=== PATIENT | male | born 1950 | race Two or more races ===

== ENCOUNTER 2020-09-06 09:08 | Emergency (ER) | payer OTHER ==
[2020-09-06 09:28] VITALS: BMI 31.7
[2020-09-06 09:57] LABS: BASO % 0.3 % (0-2.0); EOS % 1.1 % (0-4.5); HEMATOCRIT 35.9 % (35.4-49); HEMOGLOBIN 12.3 GM/dL (11.7-16.9); LYMPH % 18.5 % (8-40); MCH 29.7 pg (25.7-33.7); MCHC 34.2 g/dl (32.0-35.9); MEAN PLT VOLUME 7.4 fl (7.5-11.1); MONO % 18.4 % (3.8-10.2); NEUT % 61.7 % (42.8-82.8); PLATELET COUNT 198 K/MM3 (134-434); RBC 4.13 M/mm3 (4.00-5.60); RDW 13.1 % (11.9-15.9); WHITE BLOOD COUNT 4.3 K/mm3 (4.0-10.0)
[2020-09-06 10:27] LABS: POTASSIUM 4.4 mmol/L (3.5-5.1)
[2020-09-06 10:29] LABS: ALBUMIN 3.6 g/dl (3.4-5.0); CALCIUM 8.8 mg/dL (8.5-10.1)
[2020-09-06 10:30] LABS: BLOOD UREA NITROGEN 24.9 mg/dL (7-18)
[2020-09-06 10:33] LABS: CREATININE 1.4 mg/dL (0.55-1.3)
[2020-09-06 10:34] LABS: BILIRUBIN,TOTAL 0.7 mg/dL (0.2-1); TOT PROT 7.9 g/dl (6.4-8.2)
[2020-09-06] MEDS ORDERED: SODIUM CHLORIDE 0.9% 500 ML INFUS.BAG IV ONE (10:36)
[2020-09-06 13:21] LABS: POTASSIUM 4.4 mmol/L (3.5-5.1)
[2020-09-06 13:24] LABS: CALCIUM 8.5 mg/dL (8.5-10.1)
[2020-09-06 13:25] LABS: BLOOD UREA NITROGEN 24.6 mg/dL (7-18)
[2020-09-06 13:28] LABS: CREATININE 1.3 mg/dL (0.55-1.3)
[2020-09-06 14:19] VITALS: BP 107/67; PULSE 88; TEMP 97.8
== END 2020-09-06 14:19 | disposition home or self-care (01) ==
LOC: JER 09:08
DX: E87.1 Hypo-osmolality and hyponatremia (principal); G62.9 Polyneuropathy, unspecified
CPT/HCPCS: 36415; 80048; 80053; 85025; 93970-TC; 99284-25

== ENCOUNTER 2020-10-24 17:55 | Inpatient (IN) | payer OTHER ==
[2020-10-24] MEDS ORDERED: IBUPROFEN 600 MG TABLET (FP) PO ONE ×2 (18:37→18:42)
[2020-10-24] MEDS ORDERED: ACETAMINOPHEN 500 MG TABLET (FP) ONE (18:47)
[2020-10-24] MEDS ORDERED: DEXTROSE 50%-WATER - 25 GM/50 ML VIAL IVPUSH ONE (19:50)
[2020-10-24] MEDS ORDERED: DEXTROSE 50%-WATER 25 GM/50 ML DISP.SYRIN ONE (19:57)
[2020-10-24] MEDS ORDERED: LIDOCAINE HCL 1%, 10 MG/ML (50 mL VIAL) INF ONE (20:08)
[2020-10-24] MEDS ORDERED: LIDOCAINE HCL 1%, 10 MG/ML (20ML VIAL) ONE (20:11)
[2020-10-25] MEDS ORDERED: DEXTROSE 50%-WATER 25 GM/50 ML DISP.SYRIN ONE (00:20)
[2020-10-25] MEDS ORDERED: DEXTROSE 50%-WATER - 25 GM/50 ML VIAL IVPUSH ONE (00:21)
[2020-10-25] MEDS ORDERED: ACETAMINOPHEN 500 MG TABLET (FP) PO ONE (00:56)
[2020-10-25] MEDS ORDERED: ACETAMINOPHEN 500 MG TABLET (FP) ONE (01:01)
[2020-10-25 01:42] LABS: BASO % 0.3 % (0-2.0); HEMATOCRIT 28.7 % (35.4-49); HEMOGLOBIN 9.8 GM/dL (11.7-16.9); LYMPH % 11.5 % (8-40); MCH 29.6 pg (25.7-33.7); MCHC 34.1 g/dl (32.0-35.9); MEAN CELL VOLUME 86.8 fl (80-96); MEAN PLT VOLUME 8.2 fl (7.5-11.1); MONO % 16.3 % (3.8-10.2); NEUT % 71.9 % (42.8-82.8); PLATELET COUNT 148 K/MM3 (134-434); RDW 14.9 % (11.9-15.9); WHITE BLOOD COUNT 3.4 K/mm3 (4.0-10.0)
[2020-10-25 02:12] LABS: URINE APPEARANCE Clear; URINE BILIRUBIN Negative (NEGATIVE); URINE COLOR Yellow; URINE GLUCOSE (UA) Negative (NEGATIVE); URINE KETONE Negative (NEGATIVE); URINE LEUK ESTERASE Negative (NEGATIVE); URINE NITRITE Negative (NEGATIVE); URINE PROTEIN 2+ (NEGATIVE); URINE UROBILINOGEN 0.2 mg/dL (0.2-1.0)
[2020-10-25 02:14] LABS: POTASSIUM 4.6 mmol/L (3.5-5.1)
[2020-10-25 02:17] LABS: CALCIUM 8.2 mg/dL (8.5-10.1)
[2020-10-25 02:18] LABS: ALBUMIN 3.3 g/dl (3.4-5.0); BLOOD UREA NITROGEN 26.5 mg/dL (7-18)
[2020-10-25 02:21] LABS: CREATININE 1.7 mg/dL (0.55-1.3)
[2020-10-25 02:22] LABS: BILIRUBIN,TOTAL 0.8 mg/dL (0.2-1); TOT PROT 6.9 g/dl (6.4-8.2)
[2020-10-25 02:41] LABS: EPI CELLS 35 /uL (0-25.1); HYALINE CASTS 0 /uL (0-3.1); URINE BACTERIA 68 /uL (0-1359); URINE RBC 15 /uL (0-23.9); URINE WBC 43 /uL (0-25.8)
[2020-10-25] MEDS ORDERED: ACETAMINOPHEN 325 MG TABLET (FP) PO PRN (05:31)
[2020-10-25 08:08] LABS: POTASSIUM 4.7 mmol/L (3.5-5.1)
[2020-10-25 08:15] LABS: BLOOD UREA NITROGEN 31.4 mg/dL (7-18); CALCIUM 8.4 mg/dL (8.5-10.1); MAGNESIUM 2.2 mg/dL (1.8-2.4)
[2020-10-25 08:17] LABS: ALBUMIN 3.5 g/dl (3.4-5.0); CREATININE 1.9 mg/dL (0.55-1.3)
[2020-10-25 08:19] LABS: BILIRUBIN,TOTAL 0.8 mg/dL (0.2-1); IRON SERUM 22 ug/dL (50-175); PHOSPHOROUS 3.6 mg/dL (2.5-4.9); TOTAL IRON BINDING CAPACITY 195 ug/dL (250-450)
[2020-10-25] MEDS: INSULIN SLIDING SCALE (NOVOLOG) 1 VIAL SQ SCH ×4 (09:02→23:11)
[2020-10-25] MEDS ORDERED: ASPIRIN COATED 81 MG TABLET.EC ONE (09:37)
[2020-10-25] MEDS ORDERED: ASCORBIC ACID 500 MG TABLET (FP) ONE ×2 (09:37→22:37)
[2020-10-25] MEDS ORDERED: HEPARIN NA (PORCINE) 5,000 UNITS/ML 1ML VIAL ONE (09:38)
[2020-10-25] MEDS ORDERED: ZINC SULFATE 220 MG CAPSULE (FP) ONE (09:38)
[2020-10-25] MEDS ORDERED: CHOLECALCIFEROL (VIT D3) 1,000 UNIT (25 MCG) TABLET ONE (09:38)
[2020-10-25] MEDS: ZINC SULFATE 220 MG CAPSULE (FP) PO SCH (10:13)
[2020-10-25] MEDS: ASPIRIN COATED 81 MG TABLET.EC PO SCH (10:13)
[2020-10-25] MEDS: HEPARIN NA (PORCINE) 5,000 UNITS/ML 1ML VIAL SQ SCH ×2 (10:13→19:40)
[2020-10-25] MEDS: CHOLECALCIFEROL (VIT D3) 1,000 UNIT (25 MCG) TABLET PO SCH (10:14)
[2020-10-25] MEDS: ASCORBIC ACID 500 MG TABLET (FP) PO SCH ×2 (10:14→22:47)
[2020-10-25] MEDS ORDERED: ACETAMINOPHEN 325 MG TABLET (FP) ONE (15:00)
[2020-10-25] MEDS ORDERED: SODIUM CHLORIDE 1,000 ML IV SCH (16:15)
[2020-10-25] MEDS ORDERED: DEXAMETHASONE SOD PHOSPHATE 10 MG/1 ML VIAL ONE (17:18)
[2020-10-25] MEDS ORDERED: PIPERACILLIN/TAZOB 2.25 GM 2.25 GM/50 ML BAG IVPB ONE ×2 (17:18→22:37)
[2020-10-25] MEDS ORDERED: VANCOMYCIN 1 GRAM (PRE-DOCKED) 1,000 MG/250 ML BAG IVPB ONE (17:19)
[2020-10-25] MEDS: DEXAMETHASONE SOD PHOSPHATE 10 MG/1 ML VIAL IVPUSH SCH (18:15)
[2020-10-25] MEDS: PIPERACILLIN/TAZOB 2.25 GM 2.25 GM in DEXTROSE 5%-WATER - 50 ML IVPB SCH ×2 (18:30→23:11)
[2020-10-25] MEDS: VANCOMYCIN 1 GM in D5W (PRE-DOCKED) 1,000 MG/250 ML IVPB SCH (18:52)
[2020-10-25] MEDS ORDERED: ATORVASTATIN CA 20 MG TABLET (FP) PO SCH (22:00)
[2020-10-25] MEDS ORDERED: FERROUS SO4 325 MG TABLET (FP) ONE (22:37)
[2020-10-25] MEDS ORDERED: ATORVASTATIN CA 20 MG TABLET (FP) ONE (22:37)
[2020-10-25] MEDS ORDERED: FAMOTIDINE 20 MG/50 ML IVPB 20 MG/50 ML MG IVPB ONE (22:38)
[2020-10-25] MEDS: FERROUS SO4 325 MG TABLET (FP) PO SCH (22:47)
[2020-10-25] MEDS: FAMOTIDINE 20 MG/50 ML IVPB 20 MG/50 ML MG IVPB SCH (22:47)
[2020-10-26] MEDS: HEPARIN NA (PORCINE) 5,000 UNITS/ML 1ML VIAL SQ SCH ×4 (03:19→22:45)
[2020-10-26] MEDS: PIPERACILLIN/TAZOB 2.25 GM 2.25 GM in DEXTROSE 5%-WATER - 50 ML IVPB SCH ×3 (03:19→15:15)
[2020-10-26] MEDS ORDERED: HEPARIN NA (PORCINE) 5,000 UNITS/ML 1ML VIAL ONE ×3 (03:21→09:31)
[2020-10-26] MEDS ORDERED: PIPERACILLIN/TAZOB 2.25 GM 2.25 GM/50 ML BAG IVPB ONE ×3 (03:21→15:15)
[2020-10-26 05:14] LABS: POTASSIUM 4.4 mmol/L (3.5-5.1)
[2020-10-26 05:17] LABS: ALBUMIN 3.2 g/dl (3.4-5.0)
[2020-10-26 05:19] LABS: CREATININE 1.7 mg/dL (0.55-1.3)
[2020-10-26 05:21] LABS: BILIRUBIN,TOTAL 0.8 mg/dL (0.2-1); TOT PROT 6.8 g/dl (6.4-8.2)
[2020-10-26 06:04] LABS: BASO % 0.3 % (0-2.0); HEMATOCRIT 28.1 % (35.4-49); HEMOGLOBIN 9.8 GM/dL (11.7-16.9); MCH 29.9 pg (25.7-33.7); MCHC 34.9 g/dl (32.0-35.9); MEAN CELL VOLUME 85.7 fl (80-96); MEAN PLT VOLUME 8.7 fl (7.5-11.1); MONO % 5.4 % (3.8-10.2); NEUT % 84.3 % (42.8-82.8); PLATELET COUNT 156 K/MM3 (134-434); RBC 3.27 M/mm3 (4.00-5.60); RDW 14.8 % (11.9-15.9); WHITE BLOOD COUNT 2.5 K/mm3 (4.0-10.0)
[2020-10-26] MEDS: INSULIN SLIDING SCALE (NOVOLOG) 1 VIAL SQ SCH ×4 (08:00→23:05)
[2020-10-26] MEDS ORDERED: ZINC SULFATE 220 MG CAPSULE (FP) ONE (09:30)
[2020-10-26] MEDS ORDERED: ASCORBIC ACID 500 MG TABLET (FP) ONE (09:30)
[2020-10-26] MEDS ORDERED: CHOLECALCIFEROL (VIT D3) 1,000 UNIT (25 MCG) TABLET ONE (09:30)
[2020-10-26] MEDS ORDERED: DEXAMETHASONE SOD PHOSPHATE 10 MG/1 ML VIAL ONE (09:30)
[2020-10-26] MEDS ORDERED: ASPIRIN 325 MG ENTERIC COATED TABLET (FP) ONE (09:30)
[2020-10-26] MEDS ORDERED: DOCUSATE SODIUM 100 MG CAPSULE (FP) PO ONE (09:31)
[2020-10-26] MEDS ORDERED: FERROUS SO4 325 MG TABLET (FP) ONE (09:31)
[2020-10-26] MEDS ORDERED: VANCOMYCIN 1 GRAM (PRE-DOCKED) 1,000 MG/250 ML BAG IVPB ONE (09:31)
[2020-10-26] MEDS ORDERED: FAMOTIDINE 20 MG/50 ML IVPB 20 MG/50 ML MG IVPB ONE (09:32)
[2020-10-26 09:43] LABS: BASO % 0.1 % (0-2.0); HEMATOCRIT 27.5 % (35.4-49); HEMOGLOBIN 9.5 GM/dL (11.7-16.9); LYMPH % 7.2 % (8-40); MCH 29.7 pg (25.7-33.7); MCHC 34.6 g/dl (32.0-35.9); MEAN PLT VOLUME 8.4 fl (7.5-11.1); MONO % 7.4 % (3.8-10.2); NEUT % 85.3 % (42.8-82.8); PLATELET COUNT 152 K/MM3 (134-434); RBC 3.19 M/mm3 (4.00-5.60); RDW 14.8 % (11.9-15.9); WHITE BLOOD COUNT 3.7 K/mm3 (4.0-10.0)
[2020-10-26] MEDS ORDERED: ASPIRIN COATED 81 MG TABLET.EC ONE (09:54)
[2020-10-26 10:02] LABS: POTASSIUM 4.5 mmol/L (3.5-5.1)
[2020-10-26] MEDS: CHOLECALCIFEROL (VIT D3) 1,000 UNIT (25 MCG) TABLET PO SCH (10:06)
[2020-10-26] MEDS: ASCORBIC ACID 500 MG TABLET (FP) PO SCH ×2 (10:06→22:46)
[2020-10-26] MEDS: VANCOMYCIN 1 GM in D5W (PRE-DOCKED) 1,000 MG/250 ML IVPB SCH (10:06)
[2020-10-26] MEDS: ZINC SULFATE 220 MG CAPSULE (FP) PO SCH (10:06)
[2020-10-26] MEDS: ASPIRIN COATED 81 MG TABLET.EC PO SCH (10:06)
[2020-10-26] MEDS: DEXAMETHASONE SOD PHOSPHATE 10 MG/1 ML VIAL IVPUSH SCH (10:06)
[2020-10-26] MEDS: DOCUSATE SODIUM 100 MG CAPSULE (FP) PO SCH (10:07)
[2020-10-26] MEDS: FERROUS SO4 325 MG TABLET (FP) PO SCH ×2 (10:07→22:43)
[2020-10-26 10:22] LABS: ALBUMIN 3.2 g/dl (3.4-5.0); CALCIUM 8.2 mg/dL (8.5-10.1)
[2020-10-26 10:23] LABS: BLOOD UREA NITROGEN 40.6 mg/dL (7-18)
[2020-10-26 10:24] LABS: MAGNESIUM 2.2 mg/dL (1.8-2.4)
[2020-10-26 10:25] LABS: CREATININE 1.6 mg/dL (0.55-1.3); PHOSPHOROUS 3.6 mg/dL (2.5-4.9)
[2020-10-26 10:26] LABS: TOT PROT 6.9 g/dl (6.4-8.2)
[2020-10-26 10:28] LABS: BILIRUBIN,TOTAL 1.3 mg/dL (0.2-1)
[2020-10-26] MEDS: FAMOTIDINE 20 MG/50 ML IVPB 20 MG/50 ML MG IVPB SCH ×2 (11:00→22:46)
[2020-10-26 14:23] LABS: EPI CELLS 6 /uL (0-25.1); HYALINE CASTS 2 /uL (0-3.1); URINE APPEARANCE CLOUDY; URINE BACTERIA 18 /uL (0-1359); URINE BILIRUBIN NEGATIVE (NEGATIVE); URINE COLOR YELLOW; URINE GLUCOSE (UA) NEGATIVE (NEGATIVE); URINE KETONE TRACE (NEGATIVE); URINE LEUK ESTERASE NEGATIVE (NEGATIVE); URINE NITRITE NEGATIVE (NEGATIVE); URINE PROTEIN 2+ (NEGATIVE); URINE RBC 6 /uL (0-23.9); URINE UROBILINOGEN 0.2 mg/dL (0.2-1.0); URINE WBC 13 /uL (0-25.8)
[2020-10-26] MEDS: ACETAMINOPHEN 325 MG TABLET (FP) PO PRN (22:47)
[2020-10-26] MEDS: ATORVASTATIN CA 20 MG TABLET (FP) PO SCH (22:50)
[2020-10-27] MEDS: HEPARIN NA (PORCINE) 5,000 UNITS/ML 1ML VIAL SQ SCH ×3 (06:09→21:44)
[2020-10-27] MEDS: INSULIN SLIDING SCALE (NOVOLOG) 1 VIAL SQ SCH ×4 (06:12→22:00)
[2020-10-27 08:35] LABS: BASO % 0.2 % (0-2.0); HEMATOCRIT 28.5 % (35.4-49); HEMOGLOBIN 9.9 GM/dL (11.7-16.9); LYMPH % 5.8 % (8-40); MCHC 34.8 g/dl (32.0-35.9); MEAN CELL VOLUME 86.3 fl (80-96); MEAN PLT VOLUME 8.2 fl (7.5-11.1); PLATELET COUNT 181 K/MM3 (134-434); RDW 14.5 % (11.9-15.9); WHITE BLOOD COUNT 7.9 K/mm3 (4.0-10.0)
[2020-10-27 10:09] LABS: ALBUMIN 3.4 g/dl (3.4-5.0); ALK PHOS 41 U/L (45-117); ANION GAP 12 MMOL/L (8-16); BILIRUBIN,TOTAL 0.8 mg/dL (0.2-1); BLOOD UREA NITROGEN 56.3 mg/dL (7-18); CALCIUM 7.9 mg/dL (8.5-10.1); CHLORIDE 103 mmol/L (98-107); CO2 19 mmol/L (21-32); CREATININE 2.2 mg/dL (0.55-1.3); GLUCOSE,RANDOM 189 mg/dL (74-106); LDH 344 U/L (87-246); MAGNESIUM 2.6 mg/dL (1.8-2.4); PHOSPHOROUS 3.4 mg/dL (2.5-4.9); POTASSIUM 4.3 mmol/L (3.5-5.1); SGOT/AST 70 U/L (15-37); SGPT/ALT 39 U/L (13-61); SODIUM 134 mmol/L (136-145); TOT PROT 7.2 g/dl (6.4-8.2)
[2020-10-27] MEDS: ASPIRIN COATED 81 MG TABLET.EC PO SCH (10:52)
[2020-10-27] MEDS: CHOLECALCIFEROL (VIT D3) 1,000 UNIT (25 MCG) TABLET PO SCH (10:52)
[2020-10-27] MEDS: DOCUSATE SODIUM 100 MG CAPSULE (FP) PO SCH (10:52)
[2020-10-27] MEDS: ZINC SULFATE 220 MG CAPSULE (FP) PO SCH (10:52)
[2020-10-27] MEDS: ASCORBIC ACID 500 MG TABLET (FP) PO SCH ×2 (10:53→21:45)
[2020-10-27] MEDS: DEXAMETHASONE SOD PHOSPHATE 10 MG/1 ML VIAL IVPUSH SCH (10:53)
[2020-10-27] MEDS: FERROUS SO4 325 MG TABLET (FP) PO SCH ×2 (10:54→21:43)
[2020-10-27] MEDS: FAMOTIDINE 20 MG/50 ML IVPB 20 MG/50 ML MG IVPB SCH ×2 (12:14→21:43)
[2020-10-27] MEDS: ACETAMINOPHEN 325 MG TABLET (FP) PO PRN (13:07)
[2020-10-27] MEDS: SODIUM CHLORIDE 1,000 ML IV SCH (18:21)
[2020-10-27] MEDS: ATORVASTATIN CA 20 MG TABLET (FP) PO SCH (21:45)
[2020-10-28] MEDS: HEPARIN NA (PORCINE) 5,000 UNITS/ML 1ML VIAL SQ SCH ×3 (05:56→22:28)
[2020-10-28] MEDS: INSULIN SLIDING SCALE (NOVOLOG) 1 VIAL SQ SCH ×4 (06:26→22:29)
[2020-10-28] MEDS: FAMOTIDINE 20 MG/50 ML IVPB 20 MG/50 ML MG IVPB SCH ×2 (09:19→22:28)
[2020-10-28] MEDS: ASCORBIC ACID 500 MG TABLET (FP) PO SCH ×2 (09:20→22:28)
[2020-10-28] MEDS: FERROUS SO4 325 MG TABLET (FP) PO SCH ×2 (09:20→22:28)
[2020-10-28] MEDS: CHOLECALCIFEROL (VIT D3) 1,000 UNIT (25 MCG) TABLET PO SCH (09:20)
[2020-10-28] MEDS: ZINC SULFATE 220 MG CAPSULE (FP) PO SCH (09:20)
[2020-10-28] MEDS: DOCUSATE SODIUM 100 MG CAPSULE (FP) PO SCH (09:20)
[2020-10-28] MEDS: ASPIRIN COATED 81 MG TABLET.EC PO SCH (09:20)
[2020-10-28] MEDS: ACETAMINOPHEN 325 MG TABLET (FP) PO PRN (09:27)
[2020-10-28 09:29] LABS: BASO % 0.1 % (0-2.0); HEMATOCRIT 25.1 % (35.4-49); HEMOGLOBIN 8.6 GM/dL (11.7-16.9); LYMPH % 7.1 % (8-40); MCH 29.6 pg (25.7-33.7); MCHC 34.1 g/dl (32.0-35.9); MEAN CELL VOLUME 86.9 fl (80-96); MEAN PLT VOLUME 8.1 fl (7.5-11.1); MONO % 13.9 % (3.8-10.2); NEUT % 78.9 % (42.8-82.8); PLATELET COUNT 190 K/MM3 (134-434); RBC 2.89 M/mm3 (4.00-5.60); RDW 14.9 % (11.9-15.9); WHITE BLOOD COUNT 7.7 K/mm3 (4.0-10.0)
[2020-10-28] MEDS: DEXAMETHASONE SOD PHOSPHATE 10 MG/1 ML VIAL IVPUSH SCH (09:42)
[2020-10-28 11:53] LABS: ALBUMIN 3.3 g/dl (3.4-5.0); BILIRUBIN,TOTAL 0.8 mg/dL (0.2-1); BLOOD UREA NITROGEN 47.3 mg/dL (7-18); CALCIUM 7.9 mg/dL (8.5-10.1); CREATININE 1.8 mg/dL (0.55-1.3); MAGNESIUM 2.4 mg/dL (1.8-2.4); PHOSPHOROUS 2.5 mg/dL (2.5-4.9); POTASSIUM 4.5 mmol/L (3.5-5.1); TOT PROT 6.9 g/dl (6.4-8.2)
[2020-10-28] MEDS: SODIUM CHLORIDE 1,000 ML IV SCH (14:51)
[2020-10-28] MEDS: metoPROLOL SUCCINATE 25 MG TAB.SR.24H (FP) PO SCH (14:52)
[2020-10-28 18:28] LABS: HEMATOCRIT 23.7 % (35.4-49); HEMOGLOBIN 8.1 GM/dL (11.7-16.9); MCH 30.1 pg (25.7-33.7); MCHC 34.2 g/dl (32.0-35.9); PLATELET COUNT 162 K/MM3 (134-434); RBC 2.69 M/mm3 (4.00-5.60); WHITE BLOOD COUNT 6.1 K/mm3 (4.0-10.0)
[2020-10-28] MEDS: ATORVASTATIN CA 20 MG TABLET (FP) PO SCH (22:28)
[2020-10-29] MEDS: HEPARIN NA (PORCINE) 5,000 UNITS/ML 1ML VIAL SQ SCH ×3 (06:08→21:05)
[2020-10-29] MEDS: INSULIN SLIDING SCALE (NOVOLOG) 1 VIAL SQ SCH ×4 (06:09→21:06)
[2020-10-29 09:01] LABS: BASO % 0.1 % (0-2.0); HEMATOCRIT 23.2 % (35.4-49); HEMOGLOBIN 7.9 GM/dL (11.7-16.9); LYMPH % 7.8 % (8-40); MCH 29.7 pg (25.7-33.7); MCHC 34.1 g/dl (32.0-35.9); MEAN CELL VOLUME 87.3 fl (80-96); MEAN PLT VOLUME 8.4 fl (7.5-11.1); MONO % 10.8 % (3.8-10.2); NEUT % 81.3 % (42.8-82.8); PLATELET COUNT 190 K/MM3 (134-434); RBC 2.66 M/mm3 (4.00-5.60); WHITE BLOOD COUNT 8.1 K/mm3 (4.0-10.0)
[2020-10-29] MEDS: metoPROLOL SUCCINATE 25 MG TAB.SR.24H (FP) PO SCH (09:50)
[2020-10-29] MEDS: CHOLECALCIFEROL (VIT D3) 1,000 UNIT (25 MCG) TABLET PO SCH (09:50)
[2020-10-29] MEDS: DOCUSATE SODIUM 100 MG CAPSULE (FP) PO SCH (09:50)
[2020-10-29] MEDS: ASPIRIN COATED 81 MG TABLET.EC PO SCH (09:50)
[2020-10-29] MEDS: ASCORBIC ACID 500 MG TABLET (FP) PO SCH ×2 (09:50→21:05)
[2020-10-29] MEDS: FERROUS SO4 325 MG TABLET (FP) PO SCH ×2 (09:50→21:05)
[2020-10-29] MEDS: ZINC SULFATE 220 MG CAPSULE (FP) PO SCH (09:50)
[2020-10-29] MEDS: DEXAMETHASONE SOD PHOSPHATE 10 MG/1 ML VIAL IVPUSH SCH (09:51)
[2020-10-29] MEDS: FAMOTIDINE 20 MG/50 ML IVPB 20 MG/50 ML MG IVPB SCH ×2 (09:51→21:05)
[2020-10-29 09:53] LABS: CHLORIDE 107 mmol/L (98-107); POTASSIUM 4.6 mmol/L (3.5-5.1); SODIUM 136 mmol/L (136-145)
[2020-10-29 09:56] LABS: ALBUMIN 3.3 g/dl (3.4-5.0); ANION GAP 10 MMOL/L (8-16); BLOOD UREA NITROGEN 43.5 mg/dL (7-18); CO2 19 mmol/L (21-32); GLUCOSE,RANDOM 166 mg/dL (74-106); MAGNESIUM 2.3 mg/dL (1.8-2.4)
[2020-10-29 09:59] LABS: CREATININE 1.6 mg/dL (0.55-1.3); PHOSPHOROUS 2.5 mg/dL (2.5-4.9); SGOT/AST 54 U/L (15-37); SGPT/ALT 50 U/L (13-61)
[2020-10-29 10:00] LABS: BILIRUBIN,TOTAL 1.1 mg/dL (0.2-1); LDH 374 U/L (87-246); TOT PROT 6.6 g/dl (6.4-8.2)
[2020-10-29 10:01] LABS: ALK PHOS 36 U/L (45-117)
[2020-10-29] MEDS: SODIUM CHLORIDE 1,000 ML IV SCH (13:53)
[2020-10-29] MEDS ORDERED: metoPROLOL SUCCINATE 25 MG TAB.SR.24H (FP) PO ONE (15:34)
[2020-10-29] MEDS: ATORVASTATIN CA 20 MG TABLET (FP) PO SCH (21:05)
[2020-10-30] MEDS: INSULIN SLIDING SCALE (NOVOLOG) 1 VIAL SQ SCH ×4 (06:09→22:10)
[2020-10-30] MEDS: HEPARIN NA (PORCINE) 5,000 UNITS/ML 1ML VIAL SQ SCH (06:10)
[2020-10-30 08:13] LABS: HEMATOCRIT 22.4 % (35.4-49); HEMOGLOBIN 7.6 GM/dL (11.7-16.9); LYMPH % 5.5 % (8-40); MCH 29.6 pg (25.7-33.7); MCHC 33.8 g/dl (32.0-35.9); MEAN CELL VOLUME 87.6 fl (80-96); MEAN PLT VOLUME 8.3 fl (7.5-11.1); MONO % 7.7 % (3.8-10.2); NEUT % 86.8 % (42.8-82.8); PLATELET COUNT 160 K/MM3 (134-434); RBC 2.56 M/mm3 (4.00-5.60); RDW 15.1 % (11.9-15.9); WHITE BLOOD COUNT 8.9 K/mm3 (4.0-10.0)
[2020-10-30 08:24] LABS: POTASSIUM 5.1 mmol/L (3.5-5.1)
[2020-10-30 08:29] LABS: CALCIUM 7.8 mg/dL (8.5-10.1)
[2020-10-30 08:30] LABS: BLOOD UREA NITROGEN 39.4 mg/dL (7-18); MAGNESIUM 2.3 mg/dL (1.8-2.4)
[2020-10-30 08:33] LABS: CREATININE 1.4 mg/dL (0.55-1.3); PHOSPHOROUS 2.5 mg/dL (2.5-4.9)
[2020-10-30 08:34] LABS: BILIRUBIN,TOTAL 1.6 mg/dL (0.2-1); TOT PROT 6.3 g/dl (6.4-8.2)
[2020-10-30] MEDS: ZINC SULFATE 220 MG CAPSULE (FP) PO SCH (09:33)
[2020-10-30] MEDS: ASCORBIC ACID 500 MG TABLET (FP) PO SCH ×2 (09:33→21:59)
[2020-10-30] MEDS: CHOLECALCIFEROL (VIT D3) 1,000 UNIT (25 MCG) TABLET PO SCH (09:33)
[2020-10-30] MEDS: DOCUSATE SODIUM 100 MG CAPSULE (FP) PO SCH (09:34)
[2020-10-30] MEDS: ASPIRIN COATED 81 MG TABLET.EC PO SCH (09:34)
[2020-10-30] MEDS: DEXAMETHASONE SOD PHOSPHATE 10 MG/1 ML VIAL IVPUSH SCH (09:35)
[2020-10-30] MEDS: FERROUS SO4 325 MG TABLET (FP) PO SCH ×2 (09:35→22:02)
[2020-10-30] MEDS ORDERED: FUROSEMIDE 40 MG/4 ML INJECTABLE VIAL IVPUSH ONE (09:36)
[2020-10-30] MEDS: FAMOTIDINE 20 MG/50 ML IVPB 20 MG/50 ML MG IVPB SCH ×2 (09:39→22:12)
[2020-10-30 10:19] LABS: ERYTHROCYTE SEDIMENTATION RATE 116 mm/hr (0-20)
[2020-10-30] MEDS: ATORVASTATIN CA 20 MG TABLET (FP) PO SCH (21:59)
[2020-10-31 01:18] LABS: BASO % 0.1 % (0-2.0); HEMATOCRIT 24.1 % (35.4-49); HEMOGLOBIN 8.3 GM/dL (11.7-16.9); MCH 29.2 pg (25.7-33.7); MCHC 34.3 g/dl (32.0-35.9); MEAN CELL VOLUME 85.1 fl (80-96); MEAN PLT VOLUME 8.5 fl (7.5-11.1); MONO % 6.4 % (3.8-10.2); NEUT % 89.5 % (42.8-82.8); PLATELET COUNT 151 K/MM3 (134-434); RBC 2.83 M/mm3 (4.00-5.60); RDW 14.6 % (11.9-15.9)
[2020-10-31] MEDS: INSULIN SLIDING SCALE (NOVOLOG) 1 VIAL SQ SCH ×4 (06:09→21:55)
[2020-10-31 08:23] LABS: HEMATOCRIT 25.5 % (35.4-49); HEMOGLOBIN 8.8 GM/dL (11.7-16.9); LYMPH % 3.8 % (8-40); MCH 29.6 pg (25.7-33.7); MCHC 34.5 g/dl (32.0-35.9); MEAN CELL VOLUME 85.8 fl (80-96); MEAN PLT VOLUME 8.9 fl (7.5-11.1); MONO % 7.5 % (3.8-10.2); NEUT % 88.7 % (42.8-82.8); PLATELET COUNT 155 K/MM3 (134-434); RBC 2.97 M/mm3 (4.00-5.60); RDW 15.2 % (11.9-15.9); WHITE BLOOD COUNT 8.9 K/mm3 (4.0-10.0)
[2020-10-31 08:46] LABS: POTASSIUM 4.7 mmol/L (3.5-5.1)
[2020-10-31] MEDS: FERROUS SO4 325 MG TABLET (FP) PO SCH ×2 (09:03→21:53)
[2020-10-31] MEDS: FAMOTIDINE 20 MG/50 ML IVPB 20 MG/50 ML MG IVPB SCH ×2 (09:03→21:55)
[2020-10-31] MEDS: ASPIRIN COATED 81 MG TABLET.EC PO SCH (09:04)
[2020-10-31] MEDS: CHOLECALCIFEROL (VIT D3) 1,000 UNIT (25 MCG) TABLET PO SCH (09:04)
[2020-10-31] MEDS: DEXAMETHASONE SOD PHOSPHATE 10 MG/1 ML VIAL IVPUSH SCH (09:04)
[2020-10-31] MEDS: ASCORBIC ACID 500 MG TABLET (FP) PO SCH ×2 (09:04→21:54)
[2020-10-31] MEDS: DOCUSATE SODIUM 100 MG CAPSULE (FP) PO SCH (09:05)
[2020-10-31] MEDS: ZINC SULFATE 220 MG CAPSULE (FP) PO SCH (09:05)
[2020-10-31 09:24] LABS: ALBUMIN 2.9 g/dl (3.4-5.0); BLOOD UREA NITROGEN 47.7 mg/dL (7-18); CALCIUM 7.8 mg/dL (8.5-10.1); MAGNESIUM 2.6 mg/dL (1.8-2.4)
[2020-10-31 09:27] LABS: CREATININE 1.4 mg/dL (0.55-1.3); PHOSPHOROUS 3.4 mg/dL (2.5-4.9)
[2020-10-31 09:29] LABS: BILIRUBIN,TOTAL 1.5 mg/dL (0.2-1); TOT PROT 6.3 g/dl (6.4-8.2)
[2020-10-31] MEDS ORDERED: FUROSEMIDE 40 MG TABLET (FP) PO ONE ×2 (16:02→18:15)
[2020-10-31] MEDS: ATORVASTATIN CA 20 MG TABLET (FP) PO SCH (21:53)
[2020-10-31] MEDS: ACETAMINOPHEN 325 MG TABLET (FP) PO PRN (21:54)
[2020-11-01] MEDS: INSULIN SLIDING SCALE (NOVOLOG) 1 VIAL SQ SCH ×4 (06:14→21:35)
[2020-11-01] MEDS: ASCORBIC ACID 500 MG TABLET (FP) PO SCH ×2 (09:04→21:35)
[2020-11-01] MEDS: ASPIRIN COATED 81 MG TABLET.EC PO SCH (09:04)
[2020-11-01] MEDS: DEXAMETHASONE SOD PHOSPHATE 10 MG/1 ML VIAL IVPUSH SCH (09:05)
[2020-11-01] MEDS: FERROUS SO4 325 MG TABLET (FP) PO SCH ×2 (09:05→21:35)
[2020-11-01] MEDS: ZINC SULFATE 220 MG CAPSULE (FP) PO SCH (09:05)
[2020-11-01] MEDS: FAMOTIDINE 20 MG/50 ML IVPB 20 MG/50 ML MG IVPB SCH ×2 (09:05→21:34)
[2020-11-01] MEDS: DOCUSATE SODIUM 100 MG CAPSULE (FP) PO SCH (09:05)
[2020-11-01] MEDS: CHOLECALCIFEROL (VIT D3) 1,000 UNIT (25 MCG) TABLET PO SCH (09:05)
[2020-11-01 09:16] LABS: BASO % 0.1 % (0-2.0); HEMOGLOBIN 9.2 GM/dL (11.7-16.9); LYMPH % 4.4 % (8-40); MCH 29.3 pg (25.7-33.7); MCHC 34.1 g/dl (32.0-35.9); MEAN CELL VOLUME 85.7 fl (80-96); MEAN PLT VOLUME 8.7 fl (7.5-11.1); MONO % 9.9 % (3.8-10.2); NEUT % 85.6 % (42.8-82.8); PLATELET COUNT 172 K/MM3 (134-434); RBC 3.16 M/mm3 (4.00-5.60); WHITE BLOOD COUNT 7.2 K/mm3 (4.0-10.0)
[2020-11-01 09:42] LABS: POTASSIUM 4.3 mmol/L (3.5-5.1)
[2020-11-01 09:54] LABS: ALBUMIN 2.8 g/dl (3.4-5.0); BILIRUBIN,TOTAL 1.4 mg/dL (0.2-1); TOT PROT 6.3 g/dl (6.4-8.2)
[2020-11-01 09:56] LABS: CALCIUM 8.1 mg/dL (8.5-10.1)
[2020-11-01 09:57] LABS: BLOOD UREA NITROGEN 44.3 mg/dL (7-18); CREATININE 1.4 mg/dL (0.55-1.3); MAGNESIUM 2.4 mg/dL (1.8-2.4)
[2020-11-01] MEDS: APIXABAN 2.5 MG TABLET PO SCH (21:35)
[2020-11-01] MEDS: ATORVASTATIN CA 20 MG TABLET (FP) PO SCH (21:35)
[2020-11-02] MEDS: INSULIN SLIDING SCALE (NOVOLOG) 1 VIAL SQ SCH ×3 (06:29→17:33)
[2020-11-02 08:18] LABS: ARTERIAL BLD GAS O2 SATURATION 92.7 mmHg (95-98); ARTERIAL BLOOD GAS BASE EXCESS 0.3 mmol/L (-2-2); ARTERIAL BLOOD GAS PO2 62.6 mmHg (80-100); ARTERIAL BLOOD GAS pH 7.431 (7.350-7.450)
[2020-11-02 08:22] LABS: VENT MODE BIP; VENT RATE 30
[2020-11-02] MEDS ORDERED: MORPHINE SULFATE 2 MG/ML VIAL IVPUSH ONE (08:23)
[2020-11-02] MEDS: ACETAMINOPHEN 1000 MG/100 ML VIAL (NON FORMULARY) IVPB PRN (08:31)
[2020-11-02 08:32] LABS: BASO % 0.2 % (0-2.0); HEMATOCRIT 30.1 % (35.4-49); HEMOGLOBIN 10.3 GM/dL (11.7-16.9); MCH 29.2 pg (25.7-33.7); MCHC 34.1 g/dl (32.0-35.9); MEAN CELL VOLUME 85.6 fl (80-96); MEAN PLT VOLUME 8.9 fl (7.5-11.1); MONO % 7.4 % (3.8-10.2); NEUT % 87.4 % (42.8-82.8); PLATELET COUNT 208 K/MM3 (134-434); RBC 3.52 M/mm3 (4.00-5.60); WHITE BLOOD COUNT 12.4 K/mm3 (4.0-10.0)
[2020-11-02 08:34] LABS: POTASSIUM 4.5 mmol/L (3.5-5.1)
[2020-11-02 08:39] LABS: ALBUMIN 2.9 g/dl (3.4-5.0)
[2020-11-02 08:40] LABS: CALCIUM 8.5 mg/dL (8.5-10.1)
[2020-11-02 08:42] LABS: CREATININE 1.4 mg/dL (0.55-1.3)
[2020-11-02 08:44] LABS: BILIRUBIN,TOTAL 2.1 mg/dL (0.2-1); TOT PROT 6.7 g/dl (6.4-8.2)
[2020-11-02] MEDS ORDERED: SODIUM CHLORIDE 500 ML IV STA (09:07)
[2020-11-02] MEDS: APIXABAN 2.5 MG TABLET PO SCH ×2 (09:19→22:25)
[2020-11-02] MEDS: DEXAMETHASONE SOD PHOSPHATE 10 MG/1 ML VIAL IVPUSH SCH (09:19)
[2020-11-02] MEDS: ASPIRIN COATED 81 MG TABLET.EC PO SCH (09:19)
[2020-11-02] MEDS ORDERED: VANCOMYCIN 1 GM in D5W (PRE-DOCKED) 1,000 MG/250 ML IVPB SCH (11:00)
[2020-11-02] MEDS ORDERED: REMDESIVIR 200 MG in SODIUM CHLORIDE 210 ML IVPB ONE (11:00)
[2020-11-02] MEDS ORDERED: DEXTROSE 5%-WATER - 50 ML IVPB ONE ×2 (11:15→17:28)
[2020-11-02] MEDS ORDERED: PIPERACILLIN/TAZOBACTAM 3.375 GM VIAL IVPB ONE ×3 (11:15→17:28)
[2020-11-02] MEDS: ASCORBIC ACID 500 MG TABLET (FP) PO SCH ×2 (11:25→22:25)
[2020-11-02] MEDS: FAMOTIDINE 20 MG/50 ML IVPB 20 MG/50 ML MG IVPB SCH ×2 (11:25→22:25)
[2020-11-02] MEDS: FERROUS SO4 325 MG TABLET (FP) PO SCH ×2 (11:26→22:25)
[2020-11-02] MEDS: CHOLECALCIFEROL (VIT D3) 1,000 UNIT (25 MCG) TABLET PO SCH (11:26)
[2020-11-02] MEDS: DOCUSATE SODIUM 100 MG CAPSULE (FP) PO SCH (11:26)
[2020-11-02] MEDS: ZINC SULFATE 220 MG CAPSULE (FP) PO SCH (11:26)
[2020-11-02] MEDS ORDERED: PT OWN MED DRAWER 7, Y5N ONE (11:52)
[2020-11-02] MEDS: PIPERACILLIN/TAZOB 3.375 GM 3.375 GM in DEXTROSE 5%-WATER - 50 ML IVPB SCH ×2 (12:58→17:33)
[2020-11-02 14:02] LABS: EPI CELLS 13 /uL (0-25.1); HYALINE CASTS 4 /uL (0-3.1); PH,URINE 5.5 (5.0-8.0); URINE APPEARANCE CLEAR; URINE BACTERIA 120 /uL (0-1359); URINE BILIRUBIN NEGATIVE (NEGATIVE); URINE COLOR YELLOW; URINE GLUCOSE (UA) 1+ (NEGATIVE); URINE KETONE NEGATIVE (NEGATIVE); URINE LEUK ESTERASE NEGATIVE (NEGATIVE); URINE NITRITE NEGATIVE (NEGATIVE); URINE PROTEIN 3+ (NEGATIVE); URINE RBC 10 /uL (0-23.9); URINE WBC 6 /uL (0-25.8)
[2020-11-02] MEDS ORDERED: PIPERACILLIN/TAZOB 3.375 GM 3.375 GM in DEXTROSE 5%-WATER - 50 ML IVPB SCH (18:00)
[2020-11-02] MEDS: MORPHINE SULFATE 2 MG/ML VIAL IVPUSH PRN (22:14)
[2020-11-02] MEDS: ATORVASTATIN CA 20 MG TABLET (FP) PO SCH (22:25)
[2020-11-03] MEDS: INSULIN SLIDING SCALE (NOVOLOG) 1 VIAL SQ SCH ×5 (00:10→22:12)
[2020-11-03] MEDS: ACETAMINOPHEN 1000 MG/100 ML VIAL (NON FORMULARY) IVPB PRN (01:50)
[2020-11-03] MEDS ORDERED: PIPERACILLIN/TAZOBACTAM 3.375 GM VIAL IVPB ONE ×2 (02:40→17:24)
[2020-11-03] MEDS ORDERED: DEXTROSE 5%-WATER - 50 ML IVPB ONE ×2 (02:41→17:24)
[2020-11-03] MEDS: PIPERACILLIN/TAZOB 3.375 GM 3.375 GM in DEXTROSE 5%-WATER - 50 ML IVPB SCH ×2 (02:55→17:33)
[2020-11-03] MEDS: MORPHINE SULFATE 2 MG/ML VIAL IVPUSH PRN ×4 (06:22→21:36)
[2020-11-03] MEDS: CHOLECALCIFEROL (VIT D3) 1,000 UNIT (25 MCG) TABLET PO SCH (09:33)
[2020-11-03] MEDS: ASCORBIC ACID 500 MG TABLET (FP) PO SCH ×2 (09:33→21:35)
[2020-11-03] MEDS: DEXAMETHASONE SOD PHOSPHATE 10 MG/1 ML VIAL IVPUSH SCH (09:33)
[2020-11-03] MEDS: ASPIRIN COATED 81 MG TABLET.EC PO SCH (09:33)
[2020-11-03] MEDS: FERROUS SO4 325 MG TABLET (FP) PO SCH ×2 (09:33→21:34)
[2020-11-03] MEDS: APIXABAN 2.5 MG TABLET PO SCH (09:33)
[2020-11-03] MEDS: DOCUSATE SODIUM 100 MG CAPSULE (FP) PO SCH (09:33)
[2020-11-03] MEDS: FAMOTIDINE 20 MG/50 ML IVPB 20 MG/50 ML MG IVPB SCH ×2 (09:34→21:35)
[2020-11-03] MEDS: ZINC SULFATE 220 MG CAPSULE (FP) PO SCH (09:34)
[2020-11-03] MEDS ORDERED: FUROSEMIDE 40 MG/4 ML INJECTABLE VIAL IVPUSH ONE (10:04)
[2020-11-03] MEDS ORDERED: MORPHINE SULFATE 2 MG/ML VIAL IVPUSH ONE (10:07)
[2020-11-03 10:14] LABS: EOS % 0.1 % (0-4.5); HEMATOCRIT 31.2 % (35.4-49); HEMOGLOBIN 10.6 GM/dL (11.7-16.9); LYMPH % 4.6 % (8-40); MCH 29.4 pg (25.7-33.7); MCHC 33.8 g/dl (32.0-35.9); MEAN CELL VOLUME 86.9 fl (80-96); MEAN PLT VOLUME 9.2 fl (7.5-11.1); MONO % 4.3 % (3.8-10.2); PLATELET COUNT 168 K/MM3 (134-434); RBC 3.59 M/mm3 (4.00-5.60); RDW 15.3 % (11.9-15.9); WHITE BLOOD COUNT 8.1 K/mm3 (4.0-10.0)
[2020-11-03 10:34] LABS: POTASSIUM 4.8 mmol/L (3.5-5.1)
[2020-11-03 10:36] LABS: BLOOD UREA NITROGEN 46.6 mg/dL (7-18); CALCIUM 8.2 mg/dL (8.5-10.1)
[2020-11-03 10:37] LABS: MAGNESIUM 2.4 mg/dL (1.8-2.4)
[2020-11-03 10:40] LABS: CREATININE 1.5 mg/dL (0.55-1.3); PHOSPHOROUS 2.9 mg/dL (2.5-4.9)
[2020-11-03] MEDS ORDERED: ACETAMINOPHEN 1000 MG/100 ML VIAL (NON FORMULARY) IVPB PRN (11:20)
[2020-11-03] MEDS: REMDESIVIR 100 MG in SODIUM CHLORIDE 230 ML IVPB SCH (11:26)
[2020-11-03] MEDS ORDERED: DEXAMETHASONE SOD PHOSPHATE 4 MG/1 ML VIAL IVPUSH ONE (14:33)
[2020-11-03] MEDS ORDERED: VANCOMYCIN 1 GRAM (PRE-DOCKED) 1,000 MG/250 ML BAG IVPB ONE (15:00)
[2020-11-03] MEDS: AMINO ACIDS 4.25%/D5W 1,000 ML IV SCH ×2 (15:39→23:35)
[2020-11-03] MEDS: ATORVASTATIN CA 20 MG TABLET (FP) PO SCH (21:34)
[2020-11-03] MEDS: ENOXAPARIN NA (PORCINE) 80 MG/0.8 ML DISP.SYRIN SQ SCH (21:34)
[2020-11-04] MEDS ORDERED: PIPERACILLIN/TAZOBACTAM 3.375 GM VIAL IVPB ONE ×3 (02:31→16:53)
[2020-11-04] MEDS ORDERED: DEXTROSE 5%-WATER - 50 ML IVPB ONE ×3 (02:31→16:53)
[2020-11-04] MEDS: PIPERACILLIN/TAZOB 3.375 GM 3.375 GM in DEXTROSE 5%-WATER - 50 ML IVPB SCH ×3 (02:38→17:51)
[2020-11-04] MEDS: INSULIN SLIDING SCALE (NOVOLOG) 1 VIAL SQ SCH ×4 (07:10→22:39)
[2020-11-04 07:39] LABS: BASO % 0.3 % (0-2.0); HEMATOCRIT 27.3 % (35.4-49); HEMOGLOBIN 9.1 GM/dL (11.7-16.9); LYMPH % 2.6 % (8-40); MCH 29.7 pg (25.7-33.7); MCHC 33.3 g/dl (32.0-35.9); MEAN CELL VOLUME 89.4 fl (80-96); MEAN PLT VOLUME 9.9 fl (7.5-11.1); MONO % 3.7 % (3.8-10.2); NEUT % 93.4 % (42.8-82.8); PLATELET COUNT 153 K/MM3 (134-434); RBC 3.06 M/mm3 (4.00-5.60); RDW 15.9 % (11.9-15.9); WHITE BLOOD COUNT 7.1 K/mm3 (4.0-10.0)
[2020-11-04 07:43] LABS: POTASSIUM 5.1 mmol/L (3.5-5.1)
[2020-11-04 07:59] LABS: CALCIUM 8.3 mg/dL (8.5-10.1)
[2020-11-04 08:00] LABS: ALBUMIN 2.3 g/dl (3.4-5.0); BLOOD UREA NITROGEN 55.6 mg/dL (7-18); MAGNESIUM 2.6 mg/dL (1.8-2.4)
[2020-11-04 08:02] LABS: CREATININE 1.3 mg/dL (0.55-1.3); PHOSPHOROUS 3.8 mg/dL (2.5-4.9)
[2020-11-04 08:04] LABS: BILIRUBIN,TOTAL 1.2 mg/dL (0.2-1); TOT PROT 6.1 g/dl (6.4-8.2)
[2020-11-04] MEDS ORDERED: PT OWN MED DRAWER 7, Y5N ONE ×2 (09:34→12:28)
[2020-11-04] MEDS: FAMOTIDINE 20 MG/50 ML IVPB 20 MG/50 ML MG IVPB SCH ×2 (09:44→22:40)
[2020-11-04] MEDS: ENOXAPARIN NA (PORCINE) 80 MG/0.8 ML DISP.SYRIN SQ SCH ×2 (09:44→22:38)
[2020-11-04] MEDS: DEXAMETHASONE SOD PHOSPHATE 10 MG/1 ML VIAL IVPUSH SCH (09:46)
[2020-11-04] MEDS: MORPHINE SULFATE 2 MG/ML VIAL IVPUSH PRN (09:48)
[2020-11-04] MEDS: CHOLECALCIFEROL (VIT D3) 1,000 UNIT (25 MCG) TABLET PO SCH (09:50)
[2020-11-04] MEDS: ZINC SULFATE 220 MG CAPSULE (FP) PO SCH (09:50)
[2020-11-04] MEDS: ASCORBIC ACID 500 MG TABLET (FP) PO SCH ×2 (09:51→22:40)
[2020-11-04] MEDS: DOCUSATE SODIUM 100 MG CAPSULE (FP) PO SCH (09:51)
[2020-11-04] MEDS: ASPIRIN COATED 81 MG TABLET.EC PO SCH (09:51)
[2020-11-04] MEDS: AMINO ACIDS 4.25%/D5W 1,000 ML IV SCH ×2 (09:51→22:41)
[2020-11-04] MEDS: FERROUS SO4 325 MG TABLET (FP) PO SCH ×2 (09:51→22:38)
[2020-11-04] MEDS ORDERED: TOCILIZUMAB (ACTEMRA) 200 MG/10 ML VIAL IVPB ONE (11:00)
[2020-11-04] MEDS: REMDESIVIR 100 MG in SODIUM CHLORIDE 230 ML IVPB SCH (11:42)
[2020-11-04] MEDS ORDERED: TOCILIZUMAB 600 MG in SODIUM CHLORIDE 70 ML IVPB ONE (12:00)
[2020-11-04 15:36] LABS: ANISOCYTOSIS 0; MACROCYTOSIS 0; OVALOCYTE 1+; PLATELET ESTIMATE DECREASED
[2020-11-04] MEDS: ATORVASTATIN CA 20 MG TABLET (FP) PO SCH (22:38)
[2020-11-05] MEDS ORDERED: DEXTROSE 5%-WATER - 50 ML IVPB ONE ×3 (02:08→17:49)
[2020-11-05] MEDS ORDERED: PIPERACILLIN/TAZOBACTAM 3.375 GM VIAL IVPB ONE ×3 (02:08→17:48)
[2020-11-05] MEDS: PIPERACILLIN/TAZOB 3.375 GM 3.375 GM in DEXTROSE 5%-WATER - 50 ML IVPB SCH ×3 (02:26→17:54)
[2020-11-05] MEDS: INSULIN SLIDING SCALE (NOVOLOG) 1 VIAL SQ SCH ×4 (06:25→22:45)
[2020-11-05 07:19] LABS: BASO % 0.2 % (0-2.0); HEMATOCRIT 31.1 % (35.4-49); HEMOGLOBIN 10.6 GM/dL (11.7-16.9); LYMPH % 2.1 % (8-40); MCH 29.7 pg (25.7-33.7); MCHC 34.2 g/dl (32.0-35.9); MEAN CELL VOLUME 86.8 fl (80-96); MEAN PLT VOLUME 9.7 fl (7.5-11.1); MONO % 3.4 % (3.8-10.2); NEUT % 94.3 % (42.8-82.8); PLATELET COUNT 163 K/MM3 (134-434); RBC 3.58 M/mm3 (4.00-5.60); RDW 15.4 % (11.9-15.9); WHITE BLOOD COUNT 10.3 K/mm3 (4.0-10.0)
[2020-11-05 07:44] LABS: ALBUMIN 2.3 g/dl (3.4-5.0); CALCIUM 7.8 mg/dL (8.5-10.1)
[2020-11-05 07:45] LABS: BLOOD UREA NITROGEN 64.5 mg/dL (7-18); MAGNESIUM 2.3 mg/dL (1.8-2.4)
[2020-11-05 07:47] LABS: CREATININE 1.2 mg/dL (0.55-1.3)
[2020-11-05 07:48] LABS: PHOSPHOROUS 3.2 mg/dL (2.5-4.9)
[2020-11-05 09:37] LABS: ANISOCYTOSIS 0; MACROCYTOSIS 0; OVALOCYTE 1+; PLATELET ESTIMATE NORMAL
[2020-11-05] MEDS: DEXAMETHASONE SOD PHOSPHATE 10 MG/1 ML VIAL IVPUSH SCH (10:01)
[2020-11-05] MEDS: ASPIRIN COATED 81 MG TABLET.EC PO SCH (10:01)
[2020-11-05] MEDS: DOCUSATE SODIUM 100 MG CAPSULE (FP) PO SCH (10:01)
[2020-11-05] MEDS: ZINC SULFATE 220 MG CAPSULE (FP) PO SCH (10:02)
[2020-11-05] MEDS: FERROUS SO4 325 MG TABLET (FP) PO SCH ×2 (10:02→21:45)
[2020-11-05] MEDS: ENOXAPARIN NA (PORCINE) 80 MG/0.8 ML DISP.SYRIN SQ SCH ×2 (10:02→21:45)
[2020-11-05] MEDS: FAMOTIDINE 20 MG/50 ML IVPB 20 MG/50 ML MG IVPB SCH ×2 (10:02→21:46)
[2020-11-05] MEDS: ASCORBIC ACID 500 MG TABLET (FP) PO SCH ×2 (10:02→21:46)
[2020-11-05] MEDS: CHOLECALCIFEROL (VIT D3) 1,000 UNIT (25 MCG) TABLET PO SCH (10:03)
[2020-11-05] MEDS ORDERED: PT OWN MED DRAWER 7, Y5N ONE (10:55)
[2020-11-05] MEDS: REMDESIVIR 100 MG in SODIUM CHLORIDE 230 ML IVPB SCH (11:01)
[2020-11-05] MEDS: AMINO ACIDS 4.25%/D5W 1,000 ML IV SCH (11:01)
[2020-11-05] MEDS: MORPHINE SULFATE 2 MG/ML VIAL IVPUSH PRN ×2 (16:55→21:47)
[2020-11-05] MEDS: ATORVASTATIN CA 20 MG TABLET (FP) PO SCH (21:46)
[2020-11-06] MEDS: AMINO ACIDS 4.25%/D5W 1,000 ML IV SCH ×2 (00:15→10:23)
[2020-11-06] MEDS ORDERED: PIPERACILLIN/TAZOBACTAM 3.375 GM VIAL IVPB ONE ×3 (00:54→15:13)
[2020-11-06] MEDS ORDERED: DEXTROSE 5%-WATER - 50 ML IVPB ONE ×3 (00:55→15:13)
[2020-11-06] MEDS: PIPERACILLIN/TAZOB 3.375 GM 3.375 GM in DEXTROSE 5%-WATER - 50 ML IVPB SCH ×3 (01:46→17:15)
[2020-11-06] MEDS: MORPHINE SULFATE 2 MG/ML VIAL IVPUSH PRN ×3 (06:54→15:05)
[2020-11-06 07:32] LABS: BASO % 0.1 % (0-2.0); HEMATOCRIT 33.3 % (35.4-49); HEMOGLOBIN 11.2 GM/dL (11.7-16.9); LYMPH % 1.7 % (8-40); MCH 28.7 pg (25.7-33.7); MCHC 33.5 g/dl (32.0-35.9); MEAN CELL VOLUME 85.6 fl (80-96); MEAN PLT VOLUME 9.7 fl (7.5-11.1); NEUT % 95.2 % (42.8-82.8); PLATELET COUNT 182 K/MM3 (134-434); RBC 3.89 M/mm3 (4.00-5.60); RDW 15.7 % (11.9-15.9)
[2020-11-06 07:54] LABS: ALBUMIN 2.6 g/dl (3.4-5.0)
[2020-11-06 07:55] LABS: BLOOD UREA NITROGEN 65.1 mg/dL (7-18); CALCIUM 8.2 mg/dL (8.5-10.1)
[2020-11-06 07:56] LABS: MAGNESIUM 2.3 mg/dL (1.8-2.4)
[2020-11-06] MEDS: INSULIN SLIDING SCALE (NOVOLOG) 1 VIAL SQ SCH ×4 (07:57→21:46)
[2020-11-06 07:58] LABS: CREATININE 1.1 mg/dL (0.55-1.3)
[2020-11-06 08:00] LABS: BILIRUBIN,TOTAL 1.3 mg/dL (0.2-1); TOT PROT 6.4 g/dl (6.4-8.2)
[2020-11-06] MEDS ORDERED: RAPID SEQUENCE INTUBATION KIT NR ONE (08:44)
[2020-11-06] MEDS ORDERED: PT OWN MED DRAWER 7, Y5N ONE ×2 (09:33→18:52)
[2020-11-06] MEDS: DEXAMETHASONE SOD PHOSPHATE 10 MG/1 ML VIAL IVPUSH SCH (09:37)
[2020-11-06] MEDS: FAMOTIDINE 20 MG/50 ML IVPB 20 MG/50 ML MG IVPB SCH ×2 (09:37→21:37)
[2020-11-06] MEDS: ENOXAPARIN NA (PORCINE) 80 MG/0.8 ML DISP.SYRIN SQ SCH ×2 (09:37→21:36)
[2020-11-06] MEDS: REMDESIVIR 100 MG in SODIUM CHLORIDE 230 ML IVPB SCH (10:31)
[2020-11-06 11:20] LABS: ANISOCYTOSIS 1+; MACROCYTOSIS 0; PLATELET ESTIMATE DECREASED
[2020-11-06] MEDS ORDERED: METOPROLOL TARTRATE 5 MG/5 ML VIAL IVPUSH PRN (14:28)
[2020-11-06] MEDS ORDERED: LORazepam 2 MG/ML SDV VIAL IVPUSH ONE (15:12)
[2020-11-06] MEDS ORDERED: MIDAZOLAM HCL 5 MG/1 ML Single Dose Vial ONE (15:21)
[2020-11-06] MEDS ORDERED: PROPOFOL 1,000,000 MCG/100 ML VIAL ONE (15:21)
[2020-11-06] MEDS ORDERED: ROCURONIUM BROMIDE 50 MG/5 ML VIAL IVPUSH ONE (15:21)
[2020-11-06] MEDS ORDERED: MIDAZOLAM HCL 2 MG/2 ML SINGLE DOSE VIAL IVPUSH ONE (15:27)
[2020-11-06] MEDS ORDERED: PROPOFOL 200 MG/20 ML VIAL IVPUSH ONE (15:29)
[2020-11-06 15:45] LABS: ARTERIAL BLD GAS O2 SATURATION 91.2 mmHg (95-98); ARTERIAL BLOOD GAS BASE EXCESS -9.5 mmol/L (-2-2); ARTERIAL BLOOD GAS PO2 70.2 mmHg (80-100); ARTERIAL BLOOD GAS pH 7.238 (7.350-7.450)
[2020-11-06 15:46] LABS: ALLENS TEST POSITIVE
[2020-11-06 15:47] LABS: VENT MODE SIT; VENT RATE 10
[2020-11-06] MEDS: ASPIRIN COATED 81 MG TABLET.EC PO SCH (16:40)
[2020-11-06] MEDS: DOCUSATE SODIUM 100 MG CAPSULE (FP) PO SCH (16:40)
[2020-11-06] MEDS: FERROUS SO4 325 MG TABLET (FP) PO SCH ×2 (16:40→21:36)
[2020-11-06] MEDS: ZINC SULFATE 220 MG CAPSULE (FP) PO SCH (16:41)
[2020-11-06] MEDS: ASCORBIC ACID 500 MG TABLET (FP) PO SCH ×2 (16:41→21:37)
[2020-11-06] MEDS: CHOLECALCIFEROL (VIT D3) 1,000 UNIT (25 MCG) TABLET PO SCH (16:42)
[2020-11-06] MEDS ORDERED: PROPOFOL 1,000,000 MCG/100 ML VIAL IVPB SCH ×2 (17:30)
[2020-11-06 17:56] LABS: ARTERIAL BLD GAS O2 SATURATION 94.4 mmHg (95-98); ARTERIAL BLOOD GAS BASE EXCESS -8.8 mmol/L (-2-2); ARTERIAL BLOOD GAS PO2 96.4 mmHg (80-100)
[2020-11-06 17:57] LABS: ALLENS TEST POSITIVE
[2020-11-06 17:59] LABS: ARTERIAL BLOOD GAS pH 7.105 (7.350-7.450); VENT MODE AC; VENT RATE 24
[2020-11-06] MEDS ORDERED: MIDAZOLAM 100 MG/100 ML MG IVPB ONE (19:31)
[2020-11-06] MEDS: MIDAZOLAM 100 MG in SODIUM CHLORIDE 100 ML IVPB SCH (19:42)
[2020-11-06] MEDS: ATORVASTATIN CA 20 MG TABLET (FP) PO SCH (21:37)
[2020-11-07] MEDS ORDERED: FENTANYL NS IVPB 500 MCG/100 ML BAG IVPB ONE (00:19)
[2020-11-07] MEDS: FENTANYL NS IVPB 500 MCG/100 ML BAG IVPB SCH ×4 (00:20→20:14)
[2020-11-07] MEDS ORDERED: MAGNESIUM 1GM/D5W - 1 GM/100 ML IVPB IVPB ONE (00:30)
[2020-11-07] MEDS ORDERED: PIPERACILLIN/TAZOBACTAM 3.375 GM VIAL IVPB ONE ×4 (01:53→22:07)
[2020-11-07] MEDS ORDERED: DEXTROSE 5%-WATER - 50 ML IVPB ONE ×4 (01:54→22:07)
[2020-11-07] MEDS: AMINO ACIDS 4.25%/D5W 1,000 ML IV SCH ×2 (02:05→13:25)
[2020-11-07] MEDS: PIPERACILLIN/TAZOB 3.375 GM 3.375 GM in DEXTROSE 5%-WATER - 50 ML IVPB SCH ×3 (02:17→17:49)
[2020-11-07] MEDS ORDERED: MIDAZOLAM 100 MG/100 ML MG IVPB ONE (05:13)
[2020-11-07 05:58] LABS: ARTERIAL BLD GAS O2 SATURATION 77.4 mmHg (95-98); ARTERIAL BLOOD GAS BASE EXCESS -11.6 mmol/L (-2-2); ARTERIAL BLOOD GAS PO2 56.8 mmHg (80-100)
[2020-11-07 05:59] LABS: ALLENS TEST POSITIVE; VENT MODE A/C; VENT RATE 24
[2020-11-07 06:00] LABS: ARTERIAL BLOOD GAS pH 7.091 (7.350-7.450)
[2020-11-07] MEDS: INSULIN SLIDING SCALE (NOVOLOG) 1 VIAL SQ SCH ×4 (07:49→22:43)
[2020-11-07 08:09] LABS: BASO % 0.6 % (0-2.0); EOS % 0.1 % (0-4.5); HEMATOCRIT 26.6 % (35.4-49); HEMOGLOBIN 8.5 GM/dL (11.7-16.9); LYMPH % 1.8 % (8-40); MCHC 32.1 g/dl (32.0-35.9); MEAN CELL VOLUME 90.5 fl (80-96); MEAN PLT VOLUME 10.5 fl (7.5-11.1); MONO % 2.8 % (3.8-10.2); NEUT % 94.7 % (42.8-82.8); PLATELET COUNT 122 K/MM3 (134-434); RBC 2.94 M/mm3 (4.00-5.60); WHITE BLOOD COUNT 11.7 K/mm3 (4.0-10.0)
[2020-11-07 08:27] LABS: POTASSIUM 4.1 mmol/L (3.5-5.1)
[2020-11-07 08:31] LABS: ALBUMIN 1.7 g/dl (3.4-5.0); BLOOD UREA NITROGEN 75.5 mg/dL (7-18)
[2020-11-07 08:34] LABS: CREATININE 1.3 mg/dL (0.55-1.3); PHOSPHOROUS 4.3 mg/dL (2.5-4.9)
[2020-11-07 08:35] LABS: BILIRUBIN,TOTAL 1.3 mg/dL (0.2-1)
[2020-11-07] MEDS ORDERED: PHENYLEPHRINE HCL 10 MG/1 ML SINGLE DOSE VIAL ONE ×2 (08:35→12:54)
[2020-11-07] MEDS ORDERED: PHENYLEPHRINE NS PREMIX 10,000 MCG/100 ML BAG CVP SCH (08:45)
[2020-11-07 08:46] LABS: MAGNESIUM 1.6 mg/dL (1.8-2.4)
[2020-11-07 08:47] LABS: TOT PROT 4.2 g/dl (6.4-8.2)
[2020-11-07] MEDS: PHENYLEPHRINE NS PREMIX 50,000 MCG/500 ML BAG CVP SCH (08:50)
[2020-11-07 10:00] LABS: CALCIUM 5.6 mg/dL (8.5-10.1)
[2020-11-07] MEDS: DOCUSATE SODIUM 100 MG CAPSULE (FP) PO SCH (10:26)
[2020-11-07] MEDS: CHOLECALCIFEROL (VIT D3) 1,000 UNIT (25 MCG) TABLET PO SCH (10:29)
[2020-11-07] MEDS: FAMOTIDINE 20 MG/50 ML IVPB 20 MG/50 ML MG IVPB SCH ×2 (10:29→22:21)
[2020-11-07] MEDS: DEXAMETHASONE SOD PHOSPHATE 10 MG/1 ML VIAL IVPUSH SCH (10:29)
[2020-11-07] MEDS: ZINC SULFATE 220 MG CAPSULE (FP) PO SCH (10:29)
[2020-11-07] MEDS: ASPIRIN COATED 81 MG TABLET.EC PO SCH ×2 (10:29→16:17)
[2020-11-07] MEDS: ASCORBIC ACID 500 MG TABLET (FP) PO SCH ×2 (10:30→22:21)
[2020-11-07] MEDS ORDERED: PT OWN MED DRAWER 7, Y5N ONE (11:32)
[2020-11-07] MEDS: ENOXAPARIN NA (PORCINE) 80 MG/0.8 ML DISP.SYRIN SQ SCH ×2 (11:51→22:21)
[2020-11-07] MEDS ORDERED: VECURONIUM BROMIDE 10 MG/10 ML VIAL ONE ×2 (12:06→16:26)
[2020-11-07] MEDS ORDERED: VECURONIUM BROMIDE 50 MG/50 ML VIAL IVPUSH ONE (12:11)
[2020-11-07] MEDS ORDERED: CALCIUM GLUCONATE 10% - 1,000 MG/10 ML VIAL IVPB ONE (13:15)
[2020-11-07] MEDS: FERROUS SO4 325 MG TABLET (FP) PO SCH ×2 (14:50→22:21)
[2020-11-07] MEDS: ASPIRIN 81 MG CHEWABLE TABLETS PO SCH (15:04)
[2020-11-07 15:08] LABS: ANISOCYTOSIS 1+; MACROCYTOSIS 1+; PLATELET ESTIMATE NORMAL
[2020-11-07] MEDS ORDERED: NOREPINEPHRINE D5W PREMIX 16,000 MCG/500 ML BAG IVPB ONE (17:17)
[2020-11-07] MEDS ORDERED: NOREPINEPHRINE BITARTRATE 4 MG/4 ML ML IV ONE (17:18)
[2020-11-07] MEDS: NOREPINEPHRINE BITARTRATE 16,000 MCG in SODIUM CHLORIDE 484 ML IV SCH (18:08)
[2020-11-07 18:10] LABS: BASO % 0.4 % (0-2.0); HEMATOCRIT 33.6 % (35.4-49); HEMOGLOBIN 10.6 GM/dL (11.7-16.9); LYMPH % 0.8 % (8-40); MCHC 31.7 g/dl (32.0-35.9); MEAN CELL VOLUME 88.3 fl (80-96); MEAN PLT VOLUME 10.3 fl (7.5-11.1); MONO % 1.3 % (3.8-10.2); NEUT % 97.5 % (42.8-82.8); PLATELET COUNT 210 K/MM3 (134-434); RDW 15.9 % (11.9-15.9); WHITE BLOOD COUNT 19.6 K/mm3 (4.0-10.0)
[2020-11-07] MEDS ORDERED: VANCOMYCIN 1 GRAM (PRE-DOCKED) 1,000 MG/250 ML BAG IVPB ONE (18:25)
[2020-11-07] MEDS: VECURONIUM BROMIDE 100 MG/100 ML BAG IVPB SCH (19:00)
[2020-11-07] MEDS: MIDAZOLAM 100 MG in SODIUM CHLORIDE 100 ML IVPB SCH ×2 (21:51→22:03)
[2020-11-07] MEDS: ATORVASTATIN CA 20 MG TABLET (FP) PO SCH (22:21)
[2020-11-07] MEDS: VASOPRESSIN 40 UNITS in SODIUM CHLORIDE 98 ML IVPB SCH (23:10)
[2020-11-08] MEDS ORDERED: MAGNESIUM SULF 50% (8.12 MEQ/2 ML-1 GM VIAL) IVPB ONE (00:45)
[2020-11-08 00:58] LABS: ARTERIAL BLD GAS O2 SATURATION 97.2 mmHg (95-98); ARTERIAL BLOOD GAS BASE EXCESS -14.1 mmol/L (-2-2); ARTERIAL BLOOD GAS PO2 130.1 mmHg (80-100)
[2020-11-08 00:59] LABS: ALLENS TEST POSITIVE
[2020-11-08 01:00] LABS: VENT MODE A/C; VENT RATE 28
[2020-11-08 01:02] LABS: ARTERIAL BLOOD GAS pH 7.076 (7.350-7.450)
[2020-11-08] MEDS ORDERED: SODIUM BICARBONATE 8.4% 50 MEQ/50 ML DISP.SYRIN IVPUSH ONE (01:07)
[2020-11-08 01:08] LABS: POTASSIUM 5.9 mmol/L (3.5-5.1)
[2020-11-08 01:09] LABS: CALCIUM 7.5 mg/dL (8.5-10.1)
[2020-11-08 01:10] LABS: MAGNESIUM 2.5 mg/dL (1.8-2.4)
[2020-11-08] MEDS: PIPERACILLIN/TAZOB 3.375 GM 3.375 GM in DEXTROSE 5%-WATER - 50 ML IVPB SCH ×3 (01:38→17:55)
[2020-11-08 01:40] LABS: BLOOD UREA NITROGEN 124.5 mg/dL (7-18)
[2020-11-08] MEDS ORDERED: INSULIN REGULAR HUMAN 100 UNITS/ML *VIAL IVPUSH ONE (01:53)
[2020-11-08] MEDS ORDERED: INSULIN REGULAR HUMAN 100 UNITS/ML *VIAL SQ ONE (01:53)
[2020-11-08] MEDS ORDERED: CALCIUM GLUCONATE 10% - 1,000 MG/10 ML VIAL IVPUSH ONE (01:54)
[2020-11-08] MEDS ORDERED: LACTATED RINGERS SOLUTION 1000 ML INFUS.BAG IV ONE (02:04)
[2020-11-08] MEDS ORDERED: LACTATED RINGERS SOLUTION 1,000 ML/1,000 ML INFUS.BAG IV SCH (04:45)
[2020-11-08] MEDS: VECURONIUM BROMIDE 100 MG/100 ML BAG IVPB SCH ×3 (05:30→21:45)
[2020-11-08 06:05] LABS: ARTERIAL BLOOD GAS BASE EXCESS -12.6 mmol/L (-2-2); ARTERIAL BLOOD GAS PO2 88.8 mmHg (80-100)
[2020-11-08 06:07] LABS: ALLENS TEST POSITIVE; VENT MODE A/C; VENT RATE 28
[2020-11-08 06:12] LABS: ARTERIAL BLOOD GAS pH 7.144 (7.350-7.450)
[2020-11-08] MEDS: INSULIN SLIDING SCALE (NOVOLOG) 1 VIAL SQ SCH ×4 (06:22→22:15)
[2020-11-08 06:40] LABS: BASO % 0.2 % (0-2.0); HEMATOCRIT 29.5 % (35.4-49); LYMPH % 1.1 % (8-40); MCHC 33.7 g/dl (32.0-35.9); MEAN CELL VOLUME 86.1 fl (80-96); MEAN PLT VOLUME 10.1 fl (7.5-11.1); NEUT % 95.7 % (42.8-82.8); PLATELET COUNT 148 K/MM3 (134-434); RBC 3.43 M/mm3 (4.00-5.60); WHITE BLOOD COUNT 16.4 K/mm3 (4.0-10.0)
[2020-11-08 06:51] LABS: POTASSIUM 5.5 mmol/L (3.5-5.1)
[2020-11-08 06:59] LABS: ALBUMIN 2.1 g/dl (3.4-5.0); CALCIUM 7.6 mg/dL (8.5-10.1); MAGNESIUM 2.3 mg/dL (1.8-2.4)
[2020-11-08 07:02] LABS: CREATININE 2.9 mg/dL (0.55-1.3); PHOSPHOROUS 6.2 mg/dL (2.5-4.9)
[2020-11-08 07:03] LABS: TOT PROT 5.1 g/dl (6.4-8.2)
[2020-11-08 07:04] LABS: BILIRUBIN,TOTAL 1.1 mg/dL (0.2-1)
[2020-11-08 07:20] LABS: BLOOD UREA NITROGEN 123.4 mg/dL (7-18)
[2020-11-08] MEDS ORDERED: CALCIUM ACETATE 667 MG CAPSULE (FP) PO SCH (08:00)
[2020-11-08] MEDS ORDERED: SEVELAMER CARBONATE 800 MG TAB (FP) PO SCH (08:00)
[2020-11-08] MEDS ORDERED: PIPERACILLIN/TAZOBACTAM 3.375 GM VIAL IVPB ONE ×2 (08:44→16:21)
[2020-11-08] MEDS ORDERED: DEXTROSE 5%-WATER - 50 ML IVPB ONE ×2 (08:44→16:21)
[2020-11-08] MEDS: SEVELAMER CARBONATE 0.8 GM POWDER PACKET PO SCH ×3 (08:48→16:47)
[2020-11-08] MEDS: PHENYLEPHRINE NS PREMIX 50,000 MCG/500 ML BAG CVP SCH (08:49)
[2020-11-08] MEDS: SODIUM ZIRCONIUM CYCLOSILICATE (LOKELMA) 5 GM PACKET PO SCH (09:02)
[2020-11-08] MEDS: DEXAMETHASONE SOD PHOSPHATE 10 MG/1 ML VIAL IVPUSH SCH (09:02)
[2020-11-08] MEDS: FAMOTIDINE 20 MG/50 ML IVPB 20 MG/50 ML MG IVPB SCH ×2 (09:03→21:45)
[2020-11-08] MEDS: ASPIRIN 81 MG CHEWABLE TABLETS PO SCH (09:04)
[2020-11-08] MEDS: ZINC SULFATE 220 MG CAPSULE (FP) PO SCH (09:04)
[2020-11-08] MEDS: CHOLECALCIFEROL (VIT D3) 1,000 UNIT (25 MCG) TABLET PO SCH (09:04)
[2020-11-08] MEDS: ASCORBIC ACID 500 MG TABLET (FP) PO SCH ×2 (09:04→21:45)
[2020-11-08] MEDS: ENOXAPARIN NA (PORCINE) 80 MG/0.8 ML DISP.SYRIN SQ SCH (09:04)
[2020-11-08 09:23] LABS: ANISOCYTOSIS 1+; MACROCYTOSIS 0; PLATELET ESTIMATE DECREASED
[2020-11-08] MEDS: INSULIN (LEVEMIR) 100 UNITS/ML UNITS SQ SCH ×2 (09:55→22:15)
[2020-11-08] MEDS ORDERED: MIDAZOLAM 100 MG/100 ML MG IVPB ONE (10:14)
[2020-11-08] MEDS ORDERED: SODIUM ZIRCONIUM CYCLOSILICATE (LOKELMA) 5 GM PACKET PO ONE (10:14)
[2020-11-08] MEDS ORDERED: DOCUSATE NA 100 MG/10 ML UNIT-DOSE CUPS PO PRN (10:41)
[2020-11-08 11:10] LABS: EPI CELLS 27 /uL (0-25.1); HYALINE CASTS 4 /uL (0-3.1); URINE APPEARANCE TURBID; URINE BACTERIA 71 /uL (0-1359); URINE BILIRUBIN NEGATIVE (NEGATIVE); URINE COLOR YELLOW; URINE GLUCOSE (UA) NEGATIVE (NEGATIVE); URINE KETONE NEGATIVE (NEGATIVE); URINE LEUK ESTERASE NEGATIVE (NEGATIVE); URINE NITRITE NEGATIVE (NEGATIVE); URINE PROTEIN 1+ (NEGATIVE)
[2020-11-08 11:22] LABS: URINE RBC 276.5 /uL (0-23.9); URINE WBC 121.7 /uL (0-25.8)
[2020-11-08] MEDS: MIDAZOLAM 100 MG in SODIUM CHLORIDE 100 ML IVPB SCH ×2 (11:38→21:44)
[2020-11-08] MEDS: FERROUS SO4 300 MG/5 ML ORAL SOLN UNIT DOSE CUPS GT SCH ×2 (11:44→22:13)
[2020-11-08 11:53] LABS: YEAST NON SEEN (NEGATIVE)
[2020-11-08] MEDS: SODIUM CHLORIDE 0.45% 1,000 ML IV SCH (12:07)
[2020-11-08] MEDS: FENTANYL NS IVPB 500 MCG/100 ML BAG IVPB SCH ×3 (12:10→21:45)
[2020-11-08] MEDS: FERROUS SO4 325 MG TABLET (FP) PO SCH (12:45)
[2020-11-08] MEDS: DOCUSATE SODIUM 100 MG CAPSULE (FP) PO SCH (12:45)
[2020-11-08] MEDS: NOREPINEPHRINE BITARTRATE 16,000 MCG in SODIUM CHLORIDE 484 ML IV SCH ×2 (14:00→16:25)
[2020-11-08] MEDS: SODIUM BICARBONATE 8.4% 50 MEQ/50 ML DISP.SYRIN IVPUSH SCH ×2 (16:24→21:45)
[2020-11-08] MEDS ORDERED: ENOXAPARIN NA (PORCINE) 80 MG/0.8 ML DISP.SYRIN SQ SCH (17:30)
[2020-11-08] MEDS ORDERED: PT OWN MED DRAWER 7, Y5N ONE (21:32)
[2020-11-08] MEDS: ATORVASTATIN CA 20 MG TABLET (FP) PO SCH (21:45)
[2020-11-08] MEDS: VASOPRESSIN 40 UNITS in SODIUM CHLORIDE 98 ML IVPB SCH (22:15)
[2020-11-09] MEDS ORDERED: DEXTROSE 5%-WATER - 50 ML IVPB ONE ×2 (01:00→08:17)
[2020-11-09] MEDS ORDERED: PIPERACILLIN/TAZOBACTAM 3.375 GM VIAL IVPB ONE ×3 (01:00→10:10)
[2020-11-09] MEDS: PIPERACILLIN/TAZOB 3.375 GM 3.375 GM in DEXTROSE 5%-WATER - 50 ML IVPB SCH ×2 (01:13→10:37)
[2020-11-09 06:39] LABS: ARTERIAL BLD GAS O2 SATURATION 95.5 mmHg (95-98); ARTERIAL BLOOD GAS BASE EXCESS -8.6 mmol/L (-2-2); ARTERIAL BLOOD GAS PO2 93.6 mmHg (80-100); ARTERIAL BLOOD GAS pH 7.204 (7.350-7.450)
[2020-11-09] MEDS: FENTANYL NS IVPB 500 MCG/100 ML BAG IVPB SCH ×2 (06:45→21:21)
[2020-11-09 06:52] LABS: ALLENS TEST POSITIVE; VENT MODE A/C; VENT RATE 28
[2020-11-09] MEDS: INSULIN SLIDING SCALE (NOVOLOG) 1 VIAL SQ SCH ×4 (07:00→21:33)
[2020-11-09 07:16] LABS: BASO % 0.3 % (0-2.0); HEMATOCRIT 26.3 % (35.4-49); HEMOGLOBIN 8.6 GM/dL (11.7-16.9); LYMPH % 1.1 % (8-40); MCH 28.7 pg (25.7-33.7); MCHC 32.9 g/dl (32.0-35.9); MEAN CELL VOLUME 87.4 fl (80-96); MEAN PLT VOLUME 10.4 fl (7.5-11.1); MONO % 4.4 % (3.8-10.2); NEUT % 94.2 % (42.8-82.8); PLATELET COUNT 111 K/MM3 (134-434); RDW 16.1 % (11.9-15.9); WHITE BLOOD COUNT 14.5 K/mm3 (4.0-10.0)
[2020-11-09 07:38] LABS: POTASSIUM 5.2 mmol/L (3.5-5.1)
[2020-11-09 07:56] LABS: MAGNESIUM 2.5 mg/dL (1.8-2.4)
[2020-11-09 07:57] LABS: CALCIUM 7.3 mg/dL (8.5-10.1)
[2020-11-09 07:59] LABS: CREATININE 3.4 mg/dL (0.55-1.3)
[2020-11-09 08:00] LABS: BILIRUBIN,TOTAL 1.2 mg/dL (0.2-1); TOT PROT 4.7 g/dl (6.4-8.2)
[2020-11-09 09:14] LABS: ANISOCYTOSIS 1+; MACROCYTOSIS 0; PLATELET ESTIMATE DECREASED
[2020-11-09] MEDS ORDERED: ENOXAPARIN NA (PORCINE) 80 MG/0.8 ML DISP.SYRIN SQ SCH (10:00)
[2020-11-09 10:02] LABS: BLOOD UREA NITROGEN 142.5 mg/dL (7-18)
[2020-11-09] MEDS ORDERED: POLYETHYLENE GLYCOL 3350 119 GM BTL PO SCH (10:30)
[2020-11-09] MEDS: DEXAMETHASONE SOD PHOSPHATE 10 MG/1 ML VIAL IVPUSH SCH (10:33)
[2020-11-09] MEDS: INSULIN (LEVEMIR) 100 UNITS/ML UNITS SQ SCH ×2 (10:34→21:28)
[2020-11-09] MEDS: FERROUS SO4 300 MG/5 ML ORAL SOLN UNIT DOSE CUPS GT SCH ×2 (10:34→21:33)
[2020-11-09] MEDS: ZINC SULFATE 220 MG CAPSULE (FP) PO SCH (10:35)
[2020-11-09] MEDS: FAMOTIDINE 20 MG/50 ML IVPB 20 MG/50 ML MG IVPB SCH ×2 (10:35→21:17)
[2020-11-09] MEDS: SODIUM ZIRCONIUM CYCLOSILICATE (LOKELMA) 5 GM PACKET PO SCH (10:35)
[2020-11-09] MEDS: ASCORBIC ACID 500 MG TABLET (FP) PO SCH ×2 (10:36→21:33)
[2020-11-09] MEDS: CHOLECALCIFEROL (VIT D3) 1,000 UNIT (25 MCG) TABLET PO SCH (10:36)
[2020-11-09] MEDS: SODIUM CHLORIDE 0.45% 1,000 ML IV SCH ×2 (10:37→14:57)
[2020-11-09 10:42] LABS: INR 1.06 (0.83-1.09)
[2020-11-09 10:44] LABS: ACTIVATED PTT 40.8 SECONDS (25.2-36.5)
[2020-11-09] MEDS ORDERED: MIDAZOLAM 100 MG/100 ML MG IVPB ONE ×2 (11:24→21:14)
[2020-11-09] MEDS: PHENYLEPHRINE NS PREMIX 50,000 MCG/500 ML BAG CVP SCH (13:17)
[2020-11-09] MEDS: SEVELAMER CARBONATE 0.8 GM POWDER PACKET PO SCH ×2 (13:17→19:44)
[2020-11-09] MEDS: MIDAZOLAM 100 MG in SODIUM CHLORIDE 100 ML IVPB SCH ×2 (14:46→19:20)
[2020-11-09] MEDS ORDERED: SODIUM ZIRCONIUM CYCLOSILICATE (LOKELMA) 5 GM PACKET PO ONE (16:11)
[2020-11-09] MEDS ORDERED: SODIUM BICARBONATE 8.4% 50 MEQ/50 ML DISP.SYRIN IVPUSH ONE (16:11)
[2020-11-09] MEDS: VECURONIUM BROMIDE 100 MG/100 ML BAG IVPB SCH (19:39)
[2020-11-09] MEDS: NOREPINEPHRINE BITARTRATE 16,000 MCG in SODIUM CHLORIDE 484 ML IV SCH (19:39)
[2020-11-09 20:56] LABS: BASO % 0.2 % (0-2.0); HEMATOCRIT 25.3 % (35.4-49); HEMOGLOBIN 8.3 GM/dL (11.7-16.9); LYMPH % 1.2 % (8-40); MCH 28.9 pg (25.7-33.7); MCHC 32.9 g/dl (32.0-35.9); MEAN CELL VOLUME 87.8 fl (80-96); MEAN PLT VOLUME 10.2 fl (7.5-11.1); MONO % 4.9 % (3.8-10.2); NEUT % 93.7 % (42.8-82.8); PLATELET COUNT 111 K/MM3 (134-434); RBC 2.88 M/mm3 (4.00-5.60); RDW 15.6 % (11.9-15.9); WHITE BLOOD COUNT 14.7 K/mm3 (4.0-10.0)
[2020-11-09] MEDS: VASOPRESSIN 40 UNITS in SODIUM CHLORIDE 98 ML IVPB SCH (21:18)
[2020-11-09] MEDS: ATORVASTATIN CA 20 MG TABLET (FP) PO SCH (21:33)
[2020-11-09 22:12] LABS: ANISOCYTOSIS 1+; MACROCYTOSIS 0; OVALOCYTE 1+; PLATELET ESTIMATE DECREASED
[2020-11-10] MEDS ORDERED: RAPID SEQUENCE INTUBATION KIT NR ONE (04:10)
[2020-11-10 05:43] LABS: ARTERIAL BLD GAS O2 SATURATION 95.4 mmHg (95-98); ARTERIAL BLOOD GAS BASE EXCESS -6.9 mmol/L (-2-2); ARTERIAL BLOOD GAS PO2 84.3 mmHg (80-100); ARTERIAL BLOOD GAS pH 7.297 (7.350-7.450)
[2020-11-10 05:49] LABS: ALLENS TEST POSITIVE
[2020-11-10 05:50] LABS: VENT RATE 28
[2020-11-10] MEDS: INSULIN SLIDING SCALE (NOVOLOG) 1 VIAL SQ SCH ×4 (06:36→22:56)
[2020-11-10 07:21] LABS: BASO % 0.2 % (0-2.0); EOS % 0.1 % (0-4.5); HEMOGLOBIN 8.1 GM/dL (11.7-16.9); LYMPH % 2.3 % (8-40); MCH 29.2 pg (25.7-33.7); MCHC 33.6 g/dl (32.0-35.9); MEAN PLT VOLUME 10.2 fl (7.5-11.1); MONO % 6.2 % (3.8-10.2); NEUT % 91.2 % (42.8-82.8); PLATELET COUNT 110 K/MM3 (134-434); RBC 2.76 M/mm3 (4.00-5.60); RDW 16.1 % (11.9-15.9); WHITE BLOOD COUNT 14.4 K/mm3 (4.0-10.0)
[2020-11-10 07:39] LABS: POTASSIUM 4.5 mmol/L (3.5-5.1)
[2020-11-10 07:54] LABS: CALCIUM 7.1 mg/dL (8.5-10.1); MAGNESIUM 2.8 mg/dL (1.8-2.4)
[2020-11-10 07:58] LABS: BILIRUBIN,TOTAL 1.4 mg/dL (0.2-1); CREATININE 3.4 mg/dL (0.55-1.3)
[2020-11-10 07:59] LABS: TOT PROT 4.6 g/dl (6.4-8.2)
[2020-11-10 08:04] LABS: PHOSPHOROUS 5.5 mg/dL (2.5-4.9)
[2020-11-10] MEDS: FENTANYL NS IVPB 500 MCG/100 ML BAG IVPB SCH ×2 (09:16→20:10)
[2020-11-10] MEDS: SEVELAMER CARBONATE 0.8 GM POWDER PACKET PO SCH ×3 (09:17→18:42)
[2020-11-10] MEDS: SODIUM PHOSPHATE/NA BIPHOS 133 ML ENEMA RC SCH (09:24)
[2020-11-10] MEDS: DEXAMETHASONE SOD PHOSPHATE 10 MG/1 ML VIAL IVPUSH SCH (09:25)
[2020-11-10 09:57] LABS: ANISOCYTOSIS 1+; MACROCYTOSIS 1+; OVALOCYTE 1+; PLATELET ESTIMATE DECREASED
[2020-11-10] MEDS: FERROUS SO4 300 MG/5 ML ORAL SOLN UNIT DOSE CUPS GT SCH ×2 (10:30→22:32)
[2020-11-10] MEDS: ZINC SULFATE 220 MG CAPSULE (FP) PO SCH (10:30)
[2020-11-10] MEDS ORDERED: METOCLOPRAMIDE HCL INJECTION 10 MG/2 ML VIAL IVPUSH SCH (11:00)
[2020-11-10] MEDS: SODIUM ZIRCONIUM CYCLOSILICATE (LOKELMA) 5 GM PACKET PO SCH (11:20)
[2020-11-10] MEDS: INSULIN (LEVEMIR) 100 UNITS/ML UNITS SQ SCH ×2 (11:20→22:34)
[2020-11-10] MEDS: CHOLECALCIFEROL (VIT D3) 1,000 UNIT (25 MCG) TABLET PO SCH (11:21)
[2020-11-10] MEDS: SODIUM CHLORIDE 0.45% 1,000 ML IV SCH (11:21)
[2020-11-10] MEDS: ASCORBIC ACID 500 MG TABLET (FP) PO SCH ×2 (11:22→22:33)
[2020-11-10] MEDS: FAMOTIDINE 20 MG/50 ML IVPB 20 MG/50 ML MG IVPB SCH ×2 (11:22→22:32)
[2020-11-10 12:03] LABS: BASO % 0.6 % (0-2.0); EOS % 0.1 % (0-4.5); HEMATOCRIT 23.4 % (35.4-49); HEMOGLOBIN 7.8 GM/dL (11.7-16.9); LYMPH % 1.3 % (8-40); MCHC 33.4 g/dl (32.0-35.9); MEAN CELL VOLUME 86.7 fl (80-96); MEAN PLT VOLUME 8.4 fl (7.5-11.1); MONO % 3.3 % (3.8-10.2); NEUT % 94.7 % (42.8-82.8); PLATELET COUNT 82 K/MM3 (134-434); RDW 16.2 % (11.9-15.9)
[2020-11-10 12:14] LABS: INR 0.99 (0.83-1.09)
[2020-11-10 12:17] LABS: ACTIVATED PTT 32.3 SECONDS (25.2-36.5)
[2020-11-10 13:13] LABS: ANISOCYTOSIS 0; MACROCYTOSIS 0; OVALOCYTE 1+; PLATELET ESTIMATE DECREASED
[2020-11-10 14:21] VITALS: BMI 30.9
[2020-11-10] MEDS ORDERED: MIDAZOLAM 100 MG/100 ML MG IVPB ONE ×2 (16:23→19:38)
[2020-11-10] MEDS ORDERED: NOREPINEPHRINE D5W PREMIX 16,000 MCG/500 ML BAG IVPB ONE (19:44)
[2020-11-10] MEDS ORDERED: PT OWN MED DRAWER 7, Y5N ONE (19:45)
[2020-11-10] MEDS: MIDAZOLAM 100 MG in SODIUM CHLORIDE 100 ML IVPB SCH (20:00)
[2020-11-10 20:20] LABS: BASO % 0.5 % (0-2.0); HEMATOCRIT 22.5 % (35.4-49); HEMOGLOBIN 7.4 GM/dL (11.7-16.9); LYMPH % 1.1 % (8-40); MCH 28.9 pg (25.7-33.7); MEAN CELL VOLUME 87.4 fl (80-96); MEAN PLT VOLUME 9.8 fl (7.5-11.1); MONO % 1.3 % (3.8-10.2); NEUT % 97.1 % (42.8-82.8); PLATELET COUNT 83 K/MM3 (134-434); RBC 2.58 M/mm3 (4.00-5.60); RDW 15.8 % (11.9-15.9); WHITE BLOOD COUNT 14.6 K/mm3 (4.0-10.0)
[2020-11-10 21:09] LABS: ANISOCYTOSIS 1+; MACROCYTOSIS 0; OVALOCYTE 1+; PLATELET ESTIMATE DECREASED
[2020-11-10] MEDS: VECURONIUM BROMIDE 100 MG/100 ML BAG IVPB SCH (22:30)
[2020-11-10] MEDS: NOREPINEPHRINE BITARTRATE 16,000 MCG in SODIUM CHLORIDE 484 ML IV SCH (22:31)
[2020-11-10] MEDS: ATORVASTATIN CA 20 MG TABLET (FP) PO SCH (22:32)
[2020-11-10] MEDS: VASOPRESSIN 40 UNITS in SODIUM CHLORIDE 98 ML IVPB SCH (22:34)
[2020-11-11] MEDS: FENTANYL NS IVPB 500 MCG/100 ML BAG IVPB SCH ×3 (02:30→16:10)
[2020-11-11] MEDS: INSULIN SLIDING SCALE (NOVOLOG) 1 VIAL SQ SCH ×3 (07:07→16:18)
[2020-11-11 07:30] LABS: BASO % 0.2 % (0-2.0); HEMATOCRIT 22.1 % (35.4-49); HEMOGLOBIN 7.5 GM/dL (11.7-16.9); LYMPH % 1.6 % (8-40); MCH 29.4 pg (25.7-33.7); MEAN CELL VOLUME 86.6 fl (80-96); MEAN PLT VOLUME 10.3 fl (7.5-11.1); MONO % 4.1 % (3.8-10.2); NEUT % 94.1 % (42.8-82.8); PLATELET COUNT 96 K/MM3 (134-434); RBC 2.55 M/mm3 (4.00-5.60); WHITE BLOOD COUNT 15.4 K/mm3 (4.0-10.0)
[2020-11-11 07:35] LABS: POTASSIUM 4.6 mmol/L (3.5-5.1)
[2020-11-11 07:47] LABS: ALBUMIN 2.1 g/dl (3.4-5.0); MAGNESIUM 2.8 mg/dL (1.8-2.4)
[2020-11-11 07:49] LABS: CREATININE 3.1 mg/dL (0.55-1.3)
[2020-11-11 07:50] LABS: PHOSPHOROUS 6.2 mg/dL (2.5-4.9)
[2020-11-11 07:51] LABS: BILIRUBIN,TOTAL 1.3 mg/dL (0.2-1); TOT PROT 4.5 g/dl (6.4-8.2)
[2020-11-11 08:00] LABS: BLOOD UREA NITROGEN 156.4 mg/dL (7-18); CALCIUM 6.9 mg/dL (8.5-10.1)
[2020-11-11 09:12] LABS: ANISOCYTOSIS 2+; MACROCYTOSIS 0; PLATELET ESTIMATE DECREASED
[2020-11-11] MEDS ORDERED: PT OWN MED DRAWER 7, Y5N ONE ×2 (09:18→18:03)
[2020-11-11] MEDS: AMINO ACIDS/PROTEIN HYDROLYS 30 ML LIQUID.PKT PO SCH (09:22)
[2020-11-11] MEDS: SEVELAMER CARBONATE 0.8 GM POWDER PACKET PO SCH ×3 (09:22→17:30)
[2020-11-11] MEDS: FERROUS SO4 300 MG/5 ML ORAL SOLN UNIT DOSE CUPS GT SCH (09:22)
[2020-11-11] MEDS: DEXAMETHASONE SOD PHOSPHATE 10 MG/1 ML VIAL IVPUSH SCH (09:22)
[2020-11-11] MEDS: SODIUM ZIRCONIUM CYCLOSILICATE (LOKELMA) 5 GM PACKET PO SCH (09:23)
[2020-11-11] MEDS: ASCORBIC ACID 500 MG TABLET (FP) PO SCH ×2 (09:23→23:51)
[2020-11-11] MEDS: FAMOTIDINE 20 MG/50 ML IVPB 20 MG/50 ML MG IVPB SCH ×2 (09:23→23:51)
[2020-11-11] MEDS: SODIUM CHLORIDE 0.45% 1,000 ML IV SCH ×2 (09:24→21:42)
[2020-11-11] MEDS: CHOLECALCIFEROL (VIT D3) 1,000 UNIT (25 MCG) TABLET PO SCH (09:24)
[2020-11-11] MEDS: INSULIN (LEVEMIR) 100 UNITS/ML UNITS SQ SCH ×2 (09:25→23:30)
[2020-11-11] MEDS ORDERED: MIDAZOLAM 100 MG/100 ML MG IVPB ONE (16:02)
[2020-11-11] MEDS: VECURONIUM BROMIDE 100 MG/100 ML BAG IVPB SCH (16:08)
[2020-11-11] MEDS: MIDAZOLAM 100 MG in SODIUM CHLORIDE 100 ML IVPB SCH (17:03)
[2020-11-11] MEDS: SODIUM PHOSPHATE/NA BIPHOS 133 ML ENEMA RC SCH (17:04)
[2020-11-11] MEDS: VASOPRESSIN 40 UNITS in SODIUM CHLORIDE 98 ML IVPB SCH (23:51)
[2020-11-11] MEDS: ATORVASTATIN CA 20 MG TABLET (FP) PO SCH (23:51)
[2020-11-12] MEDS: INSULIN SLIDING SCALE (NOVOLOG) 1 VIAL SQ SCH ×5 (00:19→23:57)
[2020-11-12] MEDS ORDERED: MIDAZOLAM 100 MG/100 ML MG IVPB ONE ×2 (01:06→16:16)
[2020-11-12] MEDS: FENTANYL NS IVPB 500 MCG/100 ML BAG IVPB SCH ×4 (04:40→14:16)
[2020-11-12] MEDS: MIDAZOLAM 100 MG in SODIUM CHLORIDE 100 ML IVPB SCH ×2 (05:09→16:46)
[2020-11-12] MEDS: FERROUS SO4 300 MG/5 ML ORAL SOLN UNIT DOSE CUPS GT SCH ×3 (05:12→22:35)
[2020-11-12 07:37] LABS: BASO % 0.2 % (0-2.0); EOS % 0.1 % (0-4.5); HEMATOCRIT 21.5 % (35.4-49); HEMOGLOBIN 7.3 GM/dL (11.7-16.9); LYMPH % 3.4 % (8-40); MCH 29.6 pg (25.7-33.7); MCHC 33.9 g/dl (32.0-35.9); MEAN CELL VOLUME 87.3 fl (80-96); MEAN PLT VOLUME 10.3 fl (7.5-11.1); MONO % 7.5 % (3.8-10.2); NEUT % 88.8 % (42.8-82.8); PLATELET COUNT 88 K/MM3 (134-434); RBC 2.47 M/mm3 (4.00-5.60); RDW 16.4 % (11.9-15.9); WHITE BLOOD COUNT 11.1 K/mm3 (4.0-10.0)
[2020-11-12 08:08] LABS: POTASSIUM 4.8 mmol/L (3.5-5.1)
[2020-11-12 08:15] LABS: CALCIUM 7.1 mg/dL (8.5-10.1); MAGNESIUM 3.1 mg/dL (1.8-2.4)
[2020-11-12 08:18] LABS: CREATININE 2.6 mg/dL (0.55-1.3); PHOSPHOROUS 6.2 mg/dL (2.5-4.9)
[2020-11-12 08:20] LABS: TOT PROT 4.5 g/dl (6.4-8.2)
[2020-11-12 09:12] LABS: BLOOD UREA NITROGEN 146.6 mg/dL (7-18)
[2020-11-12] MEDS: SODIUM CHLORIDE 0.45% 1,000 ML IV SCH (09:24)
[2020-11-12 09:28] LABS: ANISOCYTOSIS 2+; MACROCYTOSIS 0; PLATELET ESTIMATE DECREASED
[2020-11-12] MEDS ORDERED: PT OWN MED DRAWER 7, Y5N ONE (10:40)
[2020-11-12] MEDS: AMINO ACIDS/PROTEIN HYDROLYS 30 ML LIQUID.PKT PO SCH (10:55)
[2020-11-12] MEDS: SEVELAMER CARBONATE 0.8 GM POWDER PACKET PO SCH ×3 (10:56→17:32)
[2020-11-12] MEDS: DEXAMETHASONE SOD PHOSPHATE 10 MG/1 ML VIAL IVPUSH SCH (10:56)
[2020-11-12] MEDS: SODIUM ZIRCONIUM CYCLOSILICATE (LOKELMA) 5 GM PACKET PO SCH (10:56)
[2020-11-12] MEDS: CHOLECALCIFEROL (VIT D3) 1,000 UNIT (25 MCG) TABLET PO SCH (10:56)
[2020-11-12] MEDS: ASCORBIC ACID 500 MG TABLET (FP) PO SCH ×2 (11:02→22:35)
[2020-11-12] MEDS: INSULIN (LEVEMIR) 100 UNITS/ML UNITS SQ SCH ×2 (11:02→22:35)
[2020-11-12] MEDS: FAMOTIDINE 20 MG/50 ML IVPB 20 MG/50 ML MG IVPB SCH ×2 (15:00→22:35)
[2020-11-12] MEDS: VECURONIUM BROMIDE 100 MG/100 ML BAG IVPB SCH ×2 (15:04→23:45)
[2020-11-12] MEDS: ENOXAPARIN NA (PORCINE) 80 MG/0.8 ML DISP.SYRIN SQ SCH (15:06)
[2020-11-12] MEDS: ATORVASTATIN CA 20 MG TABLET (FP) PO SCH (22:35)
[2020-11-12] MEDS: NOREPINEPHRINE NS PREMIX 16,000 MCG/500 ML BAG IVPB SCH (23:57)
[2020-11-13] MEDS ORDERED: MIDAZOLAM 100 MG/100 ML MG IVPB ONE ×2 (03:01→14:39)
[2020-11-13] MEDS: MIDAZOLAM 100 MG in SODIUM CHLORIDE 100 ML IVPB SCH ×3 (04:49→23:03)
[2020-11-13] MEDS: SODIUM CHLORIDE 0.45% 1,000 ML IV SCH ×2 (04:56→12:38)
[2020-11-13] MEDS: FENTANYL NS IVPB 500 MCG/100 ML BAG IVPB SCH ×2 (04:56→23:03)
[2020-11-13] MEDS: INSULIN SLIDING SCALE (NOVOLOG) 1 VIAL SQ SCH ×4 (07:12→23:04)
[2020-11-13 07:36] LABS: BASO % 0.2 % (0-2.0); HEMOGLOBIN 7.3 GM/dL (11.7-16.9); LYMPH % 2.7 % (8-40); MCH 30.1 pg (25.7-33.7); MCHC 33.2 g/dl (32.0-35.9); MEAN CELL VOLUME 90.6 fl (80-96); MEAN PLT VOLUME 10.7 fl (7.5-11.1); MONO % 6.9 % (3.8-10.2); NEUT % 90.2 % (42.8-82.8); PLATELET COUNT 78 K/MM3 (134-434); RBC 2.43 M/mm3 (4.00-5.60); RDW 17.5 % (11.9-15.9); WHITE BLOOD COUNT 9.6 K/mm3 (4.0-10.0)
[2020-11-13 07:53] LABS: ALBUMIN 2.1 g/dl (3.4-5.0); CALCIUM 7.6 mg/dL (8.5-10.1)
[2020-11-13 07:54] LABS: MAGNESIUM 3.3 mg/dL (1.8-2.4)
[2020-11-13 07:55] LABS: BILIRUBIN,TOTAL 0.8 mg/dL (0.2-1); TOT PROT 4.5 g/dl (6.4-8.2)
[2020-11-13 07:56] LABS: CREATININE 2.1 mg/dL (0.55-1.3)
[2020-11-13 08:59] LABS: ANISOCYTOSIS 0; MACROCYTOSIS 0; OVALOCYTE 1+; PLATELET ESTIMATE DECREASED
[2020-11-13] MEDS: ASCORBIC ACID 500 MG TABLET (FP) PO SCH ×2 (09:55→21:04)
[2020-11-13] MEDS: SODIUM ZIRCONIUM CYCLOSILICATE (LOKELMA) 5 GM PACKET PO SCH (09:55)
[2020-11-13] MEDS: AMINO ACIDS/PROTEIN HYDROLYS 30 ML LIQUID.PKT PO SCH (09:55)
[2020-11-13] MEDS: SEVELAMER CARBONATE 0.8 GM POWDER PACKET PO SCH ×3 (09:55→18:32)
[2020-11-13] MEDS: CHOLECALCIFEROL (VIT D3) 1,000 UNIT (25 MCG) TABLET PO SCH (09:56)
[2020-11-13] MEDS: DEXAMETHASONE SOD PHOSPHATE 10 MG/1 ML VIAL IVPUSH SCH (09:57)
[2020-11-13] MEDS: VECURONIUM BROMIDE 100 MG/100 ML BAG IVPB SCH ×3 (09:57→23:03)
[2020-11-13] MEDS: INSULIN (LEVEMIR) 100 UNITS/ML UNITS SQ SCH ×2 (09:58→21:20)
[2020-11-13] MEDS: ENOXAPARIN NA (PORCINE) 80 MG/0.8 ML DISP.SYRIN SQ SCH (09:59)
[2020-11-13] MEDS: FAMOTIDINE 20 MG/50 ML IVPB 20 MG/50 ML MG IVPB SCH ×2 (10:00→21:04)
[2020-11-13] MEDS ORDERED: PT OWN MED DRAWER 7, Y5N ONE ×2 (10:01→20:11)
[2020-11-13] MEDS: FERROUS SO4 300 MG/5 ML ORAL SOLN UNIT DOSE CUPS GT SCH ×2 (10:01→21:05)
[2020-11-13 10:37] LABS: BLOOD UREA NITROGEN 143.4 mg/dL (7-18)
[2020-11-13] MEDS: ATORVASTATIN CA 20 MG TABLET (FP) PO SCH (21:05)
[2020-11-14] MEDS ORDERED: MIDAZOLAM 100 MG/100 ML MG IVPB ONE ×3 (01:07→20:19)
[2020-11-14] MEDS: INSULIN SLIDING SCALE (NOVOLOG) 1 VIAL SQ SCH ×3 (06:38→18:11)
[2020-11-14 06:57] LABS: BASO % 0.2 % (0-2.0); HEMATOCRIT 21.6 % (35.4-49); HEMOGLOBIN 7.1 GM/dL (11.7-16.9); LYMPH % 2.5 % (8-40); MCH 30.4 pg (25.7-33.7); MCHC 32.9 g/dl (32.0-35.9); MEAN CELL VOLUME 92.5 fl (80-96); MEAN PLT VOLUME 9.7 fl (7.5-11.1); MONO % 7.4 % (3.8-10.2); NEUT % 89.9 % (42.8-82.8); PLATELET COUNT 53 K/MM3 (134-434); RBC 2.34 M/mm3 (4.00-5.60); RDW 18.1 % (11.9-15.9); WHITE BLOOD COUNT 7.6 K/mm3 (4.0-10.0)
[2020-11-14 07:16] LABS: POTASSIUM 4.8 mmol/L (3.5-5.1)
[2020-11-14 07:18] LABS: CALCIUM 7.2 mg/dL (8.5-10.1)
[2020-11-14 07:20] LABS: MAGNESIUM 2.9 mg/dL (1.8-2.4)
[2020-11-14 07:22] LABS: PHOSPHOROUS 5.2 mg/dL (2.5-4.9)
[2020-11-14 07:23] LABS: CREATININE 1.6 mg/dL (0.55-1.3)
[2020-11-14 07:24] LABS: BILIRUBIN,TOTAL 0.6 mg/dL (0.2-1); TOT PROT 4.4 g/dl (6.4-8.2)
[2020-11-14 08:02] LABS: BLOOD UREA NITROGEN 127.3 mg/dL (7-18)
[2020-11-14 09:32] LABS: ERYTHROCYTE SEDIMENTATION RATE 26 mm/hr (0-20)
[2020-11-14 10:17] LABS: ANISOCYTOSIS 1+; MACROCYTOSIS 0; OVALOCYTE 1+; PLATELET ESTIMATE DECREASED
[2020-11-14] MEDS ORDERED: PT OWN MED DRAWER 7, Y5N ONE (10:30)
[2020-11-14] MEDS: SODIUM ZIRCONIUM CYCLOSILICATE (LOKELMA) 5 GM PACKET PO SCH (10:31)
[2020-11-14] MEDS: SEVELAMER CARBONATE 0.8 GM POWDER PACKET PO SCH ×3 (10:31→18:05)
[2020-11-14] MEDS: AMINO ACIDS/PROTEIN HYDROLYS 30 ML LIQUID.PKT PO SCH (10:31)
[2020-11-14] MEDS: CHOLECALCIFEROL (VIT D3) 1,000 UNIT (25 MCG) TABLET PO SCH (10:32)
[2020-11-14] MEDS: FERROUS SO4 300 MG/5 ML ORAL SOLN UNIT DOSE CUPS GT SCH (10:32)
[2020-11-14] MEDS: ASCORBIC ACID 500 MG TABLET (FP) PO SCH (10:32)
[2020-11-14] MEDS: ENOXAPARIN NA (PORCINE) 80 MG/0.8 ML DISP.SYRIN SQ SCH (10:32)
[2020-11-14] MEDS: DEXAMETHASONE SOD PHOSPHATE 10 MG/1 ML VIAL IVPUSH SCH (10:32)
[2020-11-14] MEDS: FENTANYL NS IVPB 500 MCG/100 ML BAG IVPB SCH (10:38)
[2020-11-14] MEDS: VECURONIUM BROMIDE 100 MG/100 ML BAG IVPB SCH (10:39)
[2020-11-14] MEDS: INSULIN (LEVEMIR) 100 UNITS/ML UNITS SQ SCH (11:56)
[2020-11-14] MEDS ORDERED: VANCOMYCIN 1 GRAM (PRE-DOCKED) 1,000 MG/250 ML BAG IVPB ONE (13:00)
[2020-11-14] MEDS: MIDAZOLAM 100 MG in SODIUM CHLORIDE 100 ML IVPB SCH (13:40)
[2020-11-14] MEDS ORDERED: DEXTROSE 5%-WATER - 50 ML IVPB ONE ×2 (13:42→23:18)
[2020-11-14] MEDS ORDERED: CEFEPIME HCL 1 GM VIAL (RESTRICTED TO ID) ONE ×2 (13:42→23:17)
[2020-11-14] MEDS: CEFEPIME 1 GM in DEXTROSE 5%-WATER - 1 GM/50 ML IVPB IVPB SCH (13:46)
[2020-11-14] MEDS: FAMOTIDINE 20 MG/50 ML IVPB 20 MG/50 ML MG IVPB SCH (18:08)
[2020-11-14] MEDS: SODIUM CHLORIDE 0.45% 1,000 ML IV SCH (23:06)
[2020-11-15] MEDS: CEFEPIME 1 GM in DEXTROSE 5%-WATER - 1 GM/50 ML IVPB IVPB SCH ×3 (00:01→22:47)
[2020-11-15] MEDS: FAMOTIDINE 20 MG/50 ML IVPB 20 MG/50 ML MG IVPB SCH ×3 (00:01→22:47)
[2020-11-15] MEDS: ASCORBIC ACID 500 MG TABLET (FP) PO SCH ×3 (00:01→21:38)
[2020-11-15] MEDS: FERROUS SO4 300 MG/5 ML ORAL SOLN UNIT DOSE CUPS GT SCH ×3 (00:01→22:47)
[2020-11-15] MEDS: ATORVASTATIN CA 20 MG TABLET (FP) PO SCH ×2 (00:01→21:38)
[2020-11-15] MEDS: INSULIN SLIDING SCALE (NOVOLOG) 1 VIAL SQ SCH ×5 (00:16→21:38)
[2020-11-15] MEDS: INSULIN (LEVEMIR) 100 UNITS/ML UNITS SQ SCH ×3 (00:16→21:38)
[2020-11-15 05:44] LABS: ARTERIAL BLD GAS O2 SATURATION 88.5 mmHg (95-98); ARTERIAL BLOOD GAS BASE EXCESS -6.8 mmol/L (-2-2); ARTERIAL BLOOD GAS PO2 68.4 mmHg (80-100)
[2020-11-15 05:45] LABS: ALLENS TEST POSITIVE; VENT MODE A/C; VENT RATE 22
[2020-11-15] MEDS ORDERED: MIDAZOLAM 100 MG/100 ML MG IVPB ONE ×3 (06:33→20:03)
[2020-11-15 06:34] LABS: ARTERIAL BLOOD GAS pH 7.179 (7.350-7.450)
[2020-11-15 07:19] LABS: POTASSIUM 4.9 mmol/L (3.5-5.1)
[2020-11-15 07:22] LABS: ALBUMIN 2.1 g/dl (3.4-5.0); CALCIUM 7.3 mg/dL (8.5-10.1); MAGNESIUM 2.9 mg/dL (1.8-2.4)
[2020-11-15 07:25] LABS: CREATININE 1.3 mg/dL (0.55-1.3)
[2020-11-15 07:26] LABS: BILIRUBIN,TOTAL 0.8 mg/dL (0.2-1); PHOSPHOROUS 4.9 mg/dL (2.5-4.9); TOT PROT 4.5 g/dl (6.4-8.2)
[2020-11-15 07:36] LABS: BLOOD UREA NITROGEN 118.3 mg/dL (7-18)
[2020-11-15] MEDS: FENTANYL NS IVPB 500 MCG/100 ML BAG IVPB SCH (08:16)
[2020-11-15] MEDS: MIDAZOLAM 100 MG in SODIUM CHLORIDE 100 ML IVPB SCH (08:16)
[2020-11-15 08:46] LABS: BASO % 0.2 % (0-2.0); HEMATOCRIT 25.8 % (35.4-49); HEMOGLOBIN 8.4 GM/dL (11.7-16.9); LYMPH % 3.6 % (8-40); MCH 30.4 pg (25.7-33.7); MCHC 32.4 g/dl (32.0-35.9); MEAN CELL VOLUME 93.8 fl (80-96); MEAN PLT VOLUME 10.5 fl (7.5-11.1); NEUT % 92.2 % (42.8-82.8); PLATELET COUNT 53 K/MM3 (134-434); RBC 2.75 M/mm3 (4.00-5.60); RDW 19.7 % (11.9-15.9); WHITE BLOOD COUNT 3.7 K/mm3 (4.0-10.0)
[2020-11-15] MEDS: AMINO ACIDS/PROTEIN HYDROLYS 30 ML LIQUID.PKT PO SCH (09:00)
[2020-11-15] MEDS ORDERED: VASOPRESSIN 20 UNITS/ML VIAL IV ONE (10:16)
[2020-11-15] MEDS: VASOPRESSIN 40 UNITS in SODIUM CHLORIDE 98 ML IVPB SCH ×2 (10:30→16:03)
[2020-11-15] MEDS ORDERED: LACTATED RINGERS SOLUTION 1000 ML INFUS.BAG IV ONE (11:02)
[2020-11-15] MEDS ORDERED: DEXTROSE 5%-WATER - 50 ML IVPB ONE ×2 (11:15→20:04)
[2020-11-15] MEDS ORDERED: CEFEPIME HCL 1 GM VIAL (RESTRICTED TO ID) ONE ×2 (11:15→20:03)
[2020-11-15] MEDS: SODIUM ZIRCONIUM CYCLOSILICATE (LOKELMA) 5 GM PACKET PO SCH (11:19)
[2020-11-15] MEDS: SEVELAMER CARBONATE 0.8 GM POWDER PACKET PO SCH ×3 (11:20→17:37)
[2020-11-15] MEDS ORDERED: PT OWN MED DRAWER 7, Y5N ONE (11:25)
[2020-11-15] MEDS: HYDROCORTISONE SOD SUCCINATE 100 MG/2 ML VIAL IVPB SCH ×2 (11:29→21:38)
[2020-11-15] MEDS ORDERED: FENTANYL NS IVPB 500 MCG/100 ML BAG IVPB ONE ×2 (12:24→20:03)
[2020-11-15 12:32] LABS: ANISOCYTOSIS 2+; MACROCYTOSIS 1+; PLATELET ESTIMATE DECREASED
[2020-11-15] MEDS ORDERED: VANCOMYCIN 1 GRAM (PRE-DOCKED) 1,000 MG/250 ML BAG IVPB SCH (14:00)
[2020-11-15] MEDS: CHOLECALCIFEROL (VIT D3) 1,000 UNIT (25 MCG) TABLET PO SCH (16:09)
[2020-11-15] MEDS: VECURONIUM BROMIDE 100 MG/100 ML BAG IVPB SCH ×2 (16:09→18:00)
[2020-11-15] MEDS ORDERED: FENTANYL IVPB 500 MCG/100 ML BAG IVPB ONE (18:26)
[2020-11-15] MEDS ORDERED: LACTATED RINGERS SOLUTION 1,000 ML/1,000 ML INFUS.BAG IV STA (20:43)
[2020-11-15] MEDS ORDERED: PHENYLEPHRINE NS PREMIX 10,000 MCG/100 ML BAG CVP SCH (20:45)
[2020-11-15] MEDS: PHENYLEPHRINE NS PREMIX 50,000 MCG/500 ML BAG CVP SCH (21:38)
[2020-11-15] MEDS ORDERED: NOREPINEPHRINE NS PREMIX 16,000 MCG/500 ML BAG IVPB ONE (21:46)
[2020-11-15] MEDS ORDERED: ACETAMINOPHEN INJECTION 100 ML IVPB ONE (22:45)
[2020-11-15] MEDS ORDERED: METOPROLOL TARTRATE 5 MG/5 ML VIAL ONE (22:45)
[2020-11-15] MEDS ORDERED: SODIUM BICARBONATE 8.4% 50 MEQ/50 ML VIAL IV ONE (22:57)
[2020-11-15] MEDS ORDERED: SODIUM BICARBONATE 8.4% - 50 ML ONE (23:15)
[2020-11-15] MEDS ORDERED: DEXTROSE 50%-WATER 25 GM/50 ML DISP.SYRIN ONE (23:29)
[2020-11-15] MEDS ORDERED: DEXTROSE 50%-WATER - 25 GM/50 ML VIAL IVPUSH ONE (23:29)
[2020-11-16] MEDS: HYDROCORTISONE SOD SUCCINATE 100 MG/2 ML VIAL IVPB SCH (02:42)
[2020-11-16] MEDS ORDERED: FENTANYL NS IVPB 500 MCG/100 ML BAG IVPB ONE (05:44)
[2020-11-16 06:10] LABS: ARTERIAL BLD GAS O2 SATURATION 20.4 mmHg (95-98); ARTERIAL BLOOD GAS BASE EXCESS -13.1 mmol/L (-2-2); ARTERIAL BLOOD GAS PO2 22.7 mmHg (80-100)
[2020-11-16 06:18] LABS: ALLENS TEST POSITIVE
[2020-11-16 06:20] LABS: ARTERIAL BLOOD GAS pH 7.005 (7.350-7.450)
[2020-11-16] MEDS: INSULIN SLIDING SCALE (NOVOLOG) 1 VIAL SQ SCH ×2 (06:25→10:30)
[2020-11-16] MEDS ORDERED: SODIUM BICARBONATE 8.4% 50 MEQ/50 ML VIAL IV ONE (06:27)
[2020-11-16] MEDS ORDERED: SODIUM BICARBONATE 8.4% 50 MEQ/50 ML VIAL ONE (06:34)
[2020-11-16] MEDS ORDERED: NOREPINEPHRINE D5W PREMIX 16,000 MCG/500 ML BAG IVPB ONE (06:44)
[2020-11-16 06:51] LABS: VENT RATE 24
[2020-11-16 06:52] LABS: VENT MODE A/C
[2020-11-16] MEDS: NOREPINEPHRINE NS PREMIX 16,000 MCG/500 ML BAG IVPB SCH (07:00)
[2020-11-16 07:45] LABS: HEMATOCRIT 24.1 % (35.4-49); HEMOGLOBIN 7.8 GM/dL (11.7-16.9); MCH 31.5 pg (25.7-33.7); MCHC 32.3 g/dl (32.0-35.9); MEAN CELL VOLUME 97.3 fl (80-96); MEAN PLT VOLUME 10.7 fl (7.5-11.1); PLATELET COUNT 37 K/MM3 (134-434); RBC 2.48 M/mm3 (4.00-5.60); RDW 21.6 % (11.9-15.9)
[2020-11-16 08:09] LABS: POTASSIUM 5.7 mmol/L (3.5-5.1)
[2020-11-16 08:13] LABS: ALBUMIN 1.7 g/dl (3.4-5.0); MAGNESIUM 2.8 mg/dL (1.8-2.4)
[2020-11-16 08:15] LABS: CREATININE 1.9 mg/dL (0.55-1.3)
[2020-11-16 08:17] LABS: BILIRUBIN,TOTAL 1.7 mg/dL (0.2-1); PHOSPHOROUS 6.3 mg/dL (2.5-4.9); TOT PROT 3.9 g/dl (6.4-8.2)
[2020-11-16 08:26] LABS: WHITE BLOOD COUNT 9.6 K/mm3 (4.0-10.0)
[2020-11-16 08:51] LABS: BLOOD UREA NITROGEN 113.8 mg/dL (7-18)
[2020-11-16] MEDS: FENTANYL NS IVPB 500 MCG/100 ML BAG IVPB SCH (09:00)
[2020-11-16] MEDS ORDERED: INSULIN REGULAR HUMAN 100 UNITS/ML *VIAL IVPUSH ONE (09:30)
[2020-11-16] MEDS ORDERED: CALCIUM GLUCONATE 10% - 1,000 MG/10 ML VIAL IVPUSH ONE (09:30)
[2020-11-16] MEDS: PHENYLEPHRINE NS PREMIX 50,000 MCG/500 ML BAG CVP SCH (09:30)
[2020-11-16] MEDS ORDERED: SODIUM BICARBONATE 8.4% 50 MEQ/50 ML DISP.SYRIN IVPUSH ONE (09:30)
[2020-11-16] MEDS ORDERED: DEXTROSE 50%-WATER - 25 GM/50 ML VIAL IVPUSH ONE ×2 (09:30→10:33)
[2020-11-16] MEDS ORDERED: CEFEPIME HCL 1 GM VIAL (RESTRICTED TO ID) ONE (09:43)
[2020-11-16] MEDS ORDERED: DEXTROSE 5%-WATER - 50 ML IVPB ONE (09:43)
[2020-11-16] MEDS: SEVELAMER CARBONATE 0.8 GM POWDER PACKET PO SCH (09:57)
[2020-11-16] MEDS: CHOLECALCIFEROL (VIT D3) 1,000 UNIT (25 MCG) TABLET PO SCH (09:57)
[2020-11-16] MEDS: AMINO ACIDS/PROTEIN HYDROLYS 30 ML LIQUID.PKT PO SCH (09:57)
[2020-11-16] MEDS: CEFEPIME 1 GM in DEXTROSE 5%-WATER - 1 GM/50 ML IVPB IVPB SCH (09:58)
[2020-11-16] MEDS: FAMOTIDINE 20 MG/50 ML IVPB 20 MG/50 ML MG IVPB SCH (09:58)
[2020-11-16] MEDS: INSULIN (LEVEMIR) 100 UNITS/ML UNITS SQ SCH (10:00)
[2020-11-16] MEDS: SODIUM ZIRCONIUM CYCLOSILICATE (LOKELMA) 5 GM PACKET PO SCH (10:00)
[2020-11-16] MEDS: ASCORBIC ACID 500 MG TABLET (FP) PO SCH (10:00)
[2020-11-16] MEDS: VASOPRESSIN 40 UNITS in SODIUM CHLORIDE 98 ML IVPB SCH (10:30)
[2020-11-16] MEDS ORDERED: PT OWN MED DRAWER 7, Y5N ONE (10:35)
[2020-11-16] MEDS ORDERED: DEXTROSE 50%-WATER 25 GM/50 ML DISP.SYRIN ONE (10:35)
[2020-11-16] MEDS: FERROUS SO4 300 MG/5 ML ORAL SOLN UNIT DOSE CUPS GT SCH (10:44)
[2020-11-16] MEDS ORDERED: EPINEPHrine 1:10,000 (P-F SYR) 1 MG/10 ML DISP.SYRIN ONE (10:48)
[2020-11-16] MEDS ORDERED: DEXTROSE 5%-WATER - 1,000 ML IV SCH (12:15)
[2020-11-16 12:39] VITALS: TEMP 96.3
[2020-11-16 12:41] VITALS: BP 68/32; PULSE 37
== END 2020-11-16 11:05 | disposition expired | DRG 870 ==
LOC: JER 17:55 → JERBED 10-25 00:23 → J6WEST-2 10-26 18:06 → JICU 11-02 08:13
PROVIDERS: ADMIT Hospitalist; ATTEND Internal Medicine Pulmonary Disease
PROC: 0PSDXZZ Reposition Left Humeral Head, External Approach (ICD-10-PCS; 2020-10-25)
PROC: 30233N1 Transfusion of Nonautologous Red Blood Cells into Peripheral Vein, Percutaneous Approach (ICD-10-PCS; 2020-10-30)
PROC: 5A09557 Assistance with Respiratory Ventilation, Greater than 96 Consecutive Hours, Continuous Positive Airway Pressure (ICD-10-PCS; 2020-11-01)
PROC: XW033E5 Introduction of Remdesivir Anti-infective into Peripheral Vein, Percutaneous Approach, New Technology Group 5 (ICD-10-PCS; 2020-11-02)
PROC: 5A1955Z Respiratory Ventilation, Greater than 96 Consecutive Hours (ICD-10-PCS; principal; 2020-11-07)
PROC: 0BH17EZ Insertion of Endotracheal Airway into Trachea, Via Natural or Artificial Opening (ICD-10-PCS; 2020-11-07)
PROC: 0DH67UZ Insertion of Feeding Device into Stomach, Via Natural or Artificial Opening (ICD-10-PCS; 2020-11-07)
PROC: 3E0G76Z Introduction of Nutritional Substance into Upper GI, Via Natural or Artificial Opening (ICD-10-PCS; 2020-11-07)
PROC: 02HV33Z Insertion of Infusion Device into Superior Vena Cava, Percutaneous Approach (ICD-10-PCS; 2020-11-07)
PROC: B548ZZA Ultrasonography of Superior Vena Cava, Guidance (ICD-10-PCS; 2020-11-07)
DX: A41.89 Other specified sepsis (principal); U07.1 COVID-19; J12.82 Pneumonia due to coronavirus disease 2019; J96.01 Acute respiratory failure with hypoxia; R65.21 Severe sepsis with septic shock; N17.9 Acute kidney failure, unspecified; E87.1 Hypo-osmolality and hyponatremia; K92.2 Gastrointestinal hemorrhage, unspecified; E87.2 Acidosis; S43.015A Anterior dislocation of left humerus, initial encounter; E11.42 Type 2 diabetes mellitus with diabetic polyneuropathy; Z79.84 Long term (current) use of oral hypoglycemic drugs; G47.33 Obstructive sleep apnea (adult) (pediatric); E11.649 Type 2 diabetes mellitus with hypoglycemia without coma; D69.6 Thrombocytopenia, unspecified; E11.22 Type 2 diabetes mellitus with diabetic chronic kidney disease; I12.9 Hypertensive chronic kidney disease with stage 1 through stage 4 chronic kidney disease, or unspecified chronic kidney disease; D64.9 Anemia, unspecified; N18.9 Chronic kidney disease, unspecified; E78.5 Hyperlipidemia, unspecified; W01.0XXA Fall on same level from slipping, tripping and stumbling without subsequent striking against object, initial encounter; Y93.9 Activity, unspecified; Y92.009 Unspecified place in unspecified non-institutional (private) residence as the place of occurrence of the external cause; Y99.8 Other external cause status
CPT/HCPCS: 31500; 36415; 36430; 36511; 36600; 70450-TC; 71045-TC-FY; 73030-TC-LT-FY; 74018-TC-FY; 76775-TC; 80048; 80053; 81003; 82272; 82436; 82565; 82607; 82728; 82746; 82747; 82803; 82962; 83036; 83540; 83550; 83605; 83615; 83735; 83930; 83935; 84100; 84133; 84156; 84300; 84484; 85014; 85025; 85027; 85379; 85610; 85651; 85730; 86140; 86480; 86769; 86850; 86900; 86901; 86922; 87040; 87081; 87086; 87205; 87426; 87804; 93005; 93010; 94002; 94660; 99285-25; C9399; G0480; J0131; J1100; J1644; J3262; P9038; P9058